=== PATIENT | female | born 1930 | race Caucasian/White ===

== ENCOUNTER → 2016-11-18 | Outpatient (CLI) | payer BC ==
[~2016-11-18] MED LIST: AMOX1TAB44 PO; ASPI81TA28 PO; CHOL20007 PO; CYAN10005 PO; FLUT0.15 NAE; FOSAMAX PO; GLC500 PO; INSDGIPEN SQ; INSHNI SC; LOSA1TAB PO; METF-384 PO; POTA1080 PO; POTA10CA28 PO; PRAV20TA PO; PRD/1 PO; PRD/25 PO; PRED-301 PO; VTMD PO
== END | disposition home or self-care (01) ==
LOC: C.LABBC 07:50
PROVIDERS: ATTEND Internal Medicine Rheumatology
DX: M81.0 Age-related osteoporosis without current pathological fracture (principal); M35.3 Polymyalgia rheumatica; T38.0X1A Poisoning by glucocorticoids and synthetic analogues, accidental (unintentional), initial encounter; E55.9 Vitamin D deficiency, unspecified; X58.XXXA Exposure to other specified factors, initial encounter; E11.9 Type 2 diabetes mellitus without complications

== ENCOUNTER → 2016-11-18 | Outpatient (CLI) | payer BC ==
[2016-11-18 11:26] LABS: RATIO 15.6 mcg/mg (0-30.0)
[2016-11-18 12:23] LABS: ESTIMATED AVERAGE GLUCOSE 217 mg/dl; HA1C FLAG Normal (Normal)
== END | disposition home or self-care (01) ==
LOC: C.LABBC 07:47
PROVIDERS: ATTEND Internal Medicine Endocrinology, Diabetes & Metabolism
DX: E11.9 Type 2 diabetes mellitus without complications (principal)

== ENCOUNTER → 2016-11-29 | Day surgery (SDC) | payer BC ==
[2016-11-22 09:07] VITALS: Ht 174 cm; Wt 49.1 kg
[~2016-11-29] VITALS: Ht 174 cm; Wt 49.1 kg
[~2016-11-29] MED LIST changes: +500ML BSS 0.3ML EPI 1:1000PF IRRIG ONE; +ACETAMINOPHEN 325 MG TAB PO PRN; +AMVISC PLUS 0.8ML SYRINGE INT OCU ONE; +ATROPINE SULFATE 0.1 MG/ML 5ML SYR IV PRN; +AcetaZOLAMIDE 250 MG TAB PO SCH; +BETAXOLOL HCL 0.25% OP SUSP PER DROP CHARGE OPR SCH; +BRIMONIDINE TART 0.2% OP SOLN PER DROP CHARGE ONE; +BSS FLUSH ONE; +ENDOCOAT 0.85ML SYRINGE INT OCU ONE; +EpINEphrine INJ 1MG/ML AMP 1 MG/ML AMP ONE; -FOSAMAX PO; -GLC500 PO; -INSDGIPEN SQ; +LACTATED RINGER'S 1000ML 500 ML IV SCH; +LIDOCAINE 4% OP SOLN DROP CHARGE ONE; +LIDOCAINE 4% OP SOLN DROP CHARGE OPR SCH; +LIDOCAINE HCL 1% MPF 2 ML VIAL ONE; +MIDAZOLAM HCL 1 MG/ML 2ML VIAL ONE; +MIX: 4ML BSS 1ML EPI 1:1000 PF INSTIL ONE; +MOXIFLOXACIN OPH SOLN PER DROP CHARGE ONE; +OCUCOAT 1 ML SOLN IO ONE; -POTA1080 PO; +POVIDONE-IODINE OP SOLN 30 ML BTL ONE; -PRD/25 PO; +PROPARACAINE 0.5% OP SOLN PER DROP CHARGE OPR SCH; +TOBRAMYCIN/DEXAMETHASONE OPH OINT PER APPLN CHARGE ONE; -VTMD PO
[2016-11-29] MEDS: PHENYLEPHRINE HCL 2.5% OP SOLN PER DROP CHARGE OPR SCH ×2 (07:21→07:26)
[2016-11-29] MEDS: TROPICAMIDE 1% OP SOLN PER DROP CHARGE OPR SCH ×2 (07:22→07:27)
[2016-11-29] MEDS: CYCLOPENTOLATE HCL 1% OP SOLN PER DROP CHARGE OPR SCH ×2 (07:23→07:28)
--- NOTE | 2016-11-29 07:23 | History & Physical Bridge - SC ---
H&P Re-Evaluation Bridge Note: I have examined the patient, reviewed the History & Physical and in the interval since the performance of the History & Physical I have noted the following changes of clinical significance: No changes noted
[2016-11-29] MEDS: MOXIFLOXACIN OPH SOLN PER DROP CHARGE OPR SCH ×2 (07:24→07:34)
--- NOTE | 2016-11-29 08:30 | Discharge Instructions-SurgCtr ---
Discharge Instructions Visit Reason for Visit: Cataract Right Eye Discharge Discharge Diagnosis / Problem: lens implant right eye Discharge Goals Goal(s): Improve function Medications Stopped Medications Name(s): Metformin Last dose 11/27/16. Activity Recommendations Activity Limitations: resume your previous activity Lifting Limitations: no more than 10 pounds Exercise/Sports Limitations: gradually increase as tolerated May Resume Sexual Activity: when tolerated Shower/Bathe: tomorrow Driving or Machine Use: resume 1 day after discharge Anesthesia . Post Anesthesia Instructions: If you have had General Anesthesia or IV Sedation: * Do not drive today. * Resume driving when surgeon permits. * Do not make important decisions or sign legal documents today. * Call surgeon for: 1. Temperature elevations greater than 101 degrees F. 2. Uncontrollable pain. 3. Excessive bleeding. 4. Persistent nausea and vomiting. 5. Medication intolerance (nausea, vomiting or rash). * For nausea and vomiting use only clear liquids such as: tea, soda, bouillon until nausea subsides, then gradually increase diet as tolerated. * If you have any concerns or questions, call your surgeon's office. If physician is unavailable and it is an emergency, call 911 or go to the nearest emergency room. . Instructions / Follow-Up Instructions / Follow-Up ACTIVITY RECOMMENDATIONS: * Light activities. * Mild irritation and blurred vision are common for the first few days. * You may walk outside, read, watch television. * Redness around the white part of the eye is common. MEDICATIONS: Resume previous medications unless instructed otherwise by your surgeon. * Take white Diamox (Acetazolamide) tablet at 1 pm today. Start all eye drops at 1 pm today: * Eye drops (today and tomorrow): Prednisone - one drop in operative eye every 3 hours while awake Ofloxacin - one drop in operative eye every 3 hours while awake Ilevro - one drop in operative eye once a day SPECIAL CARE INSTRUCTIONS: * Tape plastic shield over eye to sleep at night. Call your doctor at with any concerns or problems. FOLLOW UP VISIT: Follow-up with Dr Jaime at [place] office as scheduled. Diet Recommendations Home Diet: no limitations Procedures Procedures Performed: cataract extraction with lens implant Pending Studies Studies pending at discharge: no Medical Emergencies . Who to Call and When: Medical Emergencies: If at any time you feel your situation is an emergency, please call 911 immediately. . Non-Emergent Contact Non-Emergency issues call your: Plant Hr Manager Call Non-Emergent contact if: your pain is not controlled [phone] . . "Provider Documentation" section prepared by Arturo Jaime.
--- NOTE | 2016-11-29 08:32 | [facility] Operative Report ---
Operative Report Date of Service Nov 29, 2016. Operative Report 1. PREOPERATIVE DIAGNOSIS: Senile nuclear cataract, right eye. 2. POSTOPERATIVE DIAGNOSIS: Senile nuclear cataract, right eye. 3. PROCEDURE: Phacoemulsification of right cataract with posterior chamber lens implant, type Bausch [employer] Lomb, model MX60, power +25.0 diopters. ANESTHESIA: Local standby. SURGEON: Dr. Jaime. COMPLICATIONS: None. OPERATING TIME: 10 minutes. 4. OPERATION AND FINDINGS: DESCRIPTION OF PROCEDURE: The right pupil was dilated. The anesthetic was administered using a topical technique. The right eye was prepped and draped. A speculum was placed. A clear corneal incision was formed. The chamber was filled with Amvisc Plus and Endocoat. Epinephrine solution was used. A paracentesis was placed. A capsulorrhexis was performed. The nucleus was hydrodissected. A dense lens was removed with phacoemulsification. Time was 9.59 seconds. The aspiration unit was used to remove the cortex. The capsule was filled with Amvisc Plus. The lens implant was folded and placed into the capsule. The incision was hydrated. The Amvisc was aspirated. The wound was secure. The chamber was deep. The pupil was round. TobraDex ointment and Vigamox solution were placed. The speculum was removed. The patient was returned to the Recovery Room in stable condition. I attest to the content of the Intraoperative Record and any orders documented therein. Any exceptions are noted below. The scribe's documentation has been prepared in my presence, under my direction and personally reviewed by me in its entirety. I confirm that the note above accurately reflects all work, treatment, procedures, and medical decision making performed by me. I personally scribed for Arturo Jaime M.D. (JUAN JOSE) on 11/29/16 at 08:32. Electronically submitted by Kristina Alexandra ([facility]).
[2016-11-29 08:38] VITALS: TEMP 36.2
--- NOTE | 2016-11-29 08:48 | Anesthesia Progress Nt - [facility] ---
Anesthesia Post Op Note Date & Time Nov 29, 2016 at 08:48 Vital Signs Pain Intensity: 0 Vital Signs Past 12 Hours Date Time Temp Pulse Resp B/P Pulse Ox O2 Delivery O2 Flow Rate FiO2 11/29/16 08:38 36.2 77 16 124/65 99 Room Air 11/29/16 07:08 36.5 76 16 168/73 99 Room Air Notes Mental Status: alert / awake / arousable, participated in evaluation Pt Amnestic to Procedure: Yes Nausea / Vomiting: adequately controlled Pain: adequately controlled Airway Patency, RR, SpO2: stable & adequate BP & HR: stable & adequate Hydration State: stable & adequate Anesthetic Complications: no major complications apparent
[2016-11-29 08:57] VITALS: BP 144/59; PULSE 64; O2SAT 100
== END | disposition home or self-care (01) ==
LOC: X.SURG 06:57
PROVIDERS: ATTEND Specialist
DX: H25.11 Age-related nuclear cataract, right eye (principal); E11.36 Type 2 diabetes mellitus with diabetic cataract; I10 Essential (primary) hypertension; H40.9 Unspecified glaucoma; Z79.4 Long term (current) use of insulin; M19.90 Unspecified osteoarthritis, unspecified site

== ENCOUNTER → 2017-01-06 | Outpatient (CLI) | payer BC ==
[~2017-01-06] MED LIST changes: -500ML BSS 0.3ML EPI 1:1000PF IRRIG ONE; -ACETAMINOPHEN 325 MG TAB PO PRN; -AMVISC PLUS 0.8ML SYRINGE INT OCU ONE; -ATROPINE SULFATE 0.1 MG/ML 5ML SYR IV PRN; -AcetaZOLAMIDE 250 MG TAB PO SCH; -BETAXOLOL HCL 0.25% OP SUSP PER DROP CHARGE OPR SCH; -BRIMONIDINE TART 0.2% OP SOLN PER DROP CHARGE ONE; -BSS FLUSH ONE; -ENDOCOAT 0.85ML SYRINGE INT OCU ONE; -EpINEphrine INJ 1MG/ML AMP 1 MG/ML AMP ONE; -LACTATED RINGER'S 1000ML 500 ML IV SCH; -LIDOCAINE 4% OP SOLN DROP CHARGE ONE; -LIDOCAINE 4% OP SOLN DROP CHARGE OPR SCH; -LIDOCAINE HCL 1% MPF 2 ML VIAL ONE; -MIDAZOLAM HCL 1 MG/ML 2ML VIAL ONE; -MIX: 4ML BSS 1ML EPI 1:1000 PF INSTIL ONE; -MOXIFLOXACIN OPH SOLN PER DROP CHARGE ONE; -OCUCOAT 1 ML SOLN IO ONE; -POVIDONE-IODINE OP SOLN 30 ML BTL ONE; -PROPARACAINE 0.5% OP SOLN PER DROP CHARGE OPR SCH; -TOBRAMYCIN/DEXAMETHASONE OPH OINT PER APPLN CHARGE ONE
== END | disposition home or self-care (01) ==
LOC: C.LABBC 07:53
PROVIDERS: ATTEND Internal Medicine Rheumatology
DX: M35.3 Polymyalgia rheumatica (principal); T38.0X1A Poisoning by glucocorticoids and synthetic analogues, accidental (unintentional), initial encounter; Z79.52 Long term (current) use of systemic steroids

== ENCOUNTER → 2017-02-24 | Outpatient (CLI) | payer BC ==
[2017-02-24 11:17] LABS: ESTIMATED AVERAGE GLUCOSE 160 mg/dl; HA1C FLAG Normal (Normal); THYROID STIMULATING HORMONE 3.58 uIu/ml (0.300-4.500)
== END | disposition home or self-care (01) ==
LOC: C.LABBC 07:41
PROVIDERS: ATTEND Physician Assistant
DX: E11.9 Type 2 diabetes mellitus without complications (principal); M35.3 Polymyalgia rheumatica; T38.0X1A Poisoning by glucocorticoids and synthetic analogues, accidental (unintentional), initial encounter; Z79.52 Long term (current) use of systemic steroids

== ENCOUNTER → 2017-02-24 | Outpatient (CLI) | payer BC | END | disposition home or self-care (01) | LOC: C.LABBC 07:43 | PROVIDERS: ATTEND Internal Medicine Rheumatology | DX: M35.3 Polymyalgia rheumatica (principal); T38.0X1A Poisoning by glucocorticoids and synthetic analogues, accidental (unintentional), initial encounter; Z79.52 Long term (current) use of systemic steroids ==

== ENCOUNTER → 2017-05-10 | Outpatient (CLI) | payer BC ==
--- NOTE | 2017-05-10 14:31 | DIAGNOSTIC IMAGING REPORT ---
(CHEST) THORAX WITHOUT CLINICAL HISTORY: R91.8 Pulmonary nodules COMPARISON STUDY: 05/02/2016 CT DOSE: 178.28 mGycm TECHNIQUE: CT of the thorax was performed from the thoracic inlet to the lung bases. Images are reviewed in the axial, sagittal, and coronal planes. IV contrast was not administered for this examination. A dose lowering technique was utilized adhering to the principles of ALARA. FINDINGS: Thyroid: There is a multinodular thyroid gland including an 18 mm left lobe thyroid nodule. Thoracic aorta: The thoracic aorta is normal in course and caliber, noting standard 3 vessel arch anatomy. Heart: The heart is mildly enlarged. Lungs and pleural spaces: No pleural effusions are visualized. Evaluation the parenchyma is limited due to respiratory motion artifact. There is no focal pulmonary consolidation. There are stable solid subcentimeter pulmonary nodules, the largest of which measures 3 mm. No further follow-up is deemed indicated. Mediastinum: There is no mediastinal lymphadenopathy. Karen: There is no evidence of pathologic hilar adenopathy given the limitations of a noncontrast study Axilla: Clear. Upper abdomen: Bilateral nephrolithiasis Skeletal structures: There are no lytic or blastic osseous lesions. IMPRESSION: 1. Stable bilateral subcentimeter pulmonary nodules, the largest of which measures 3 mm. No further follow-up is deemed indicated 2. No evidence of pathologic adenopathy 3. Multinodular thyroid gland including an 18 mm left lobe nodule 4. Bilateral nephrolithiasis Electronically signed by: Khalif Pagan M.D. 05/10/2017 2:30 PM Dictated Date/Time: 05/10/2017 2:25 PM
== END | disposition home or self-care (01) ==
LOC: C.CTS 13:54
PROVIDERS: ATTEND Physician Assistant Medical
DX: R91.8 Other nonspecific abnormal finding of lung field (principal); E04.2 Nontoxic multinodular goiter

== ENCOUNTER → 2017-05-12 | Outpatient (CLI) | payer BC | END | disposition home or self-care (01) | LOC: C.LABBC 07:45 | PROVIDERS: ATTEND Internal Medicine Rheumatology | DX: M35.3 Polymyalgia rheumatica (principal); T38.0X1A Poisoning by glucocorticoids and synthetic analogues, accidental (unintentional), initial encounter; Z79.52 Long term (current) use of systemic steroids ==

== ENCOUNTER → 2017-06-01 | Outpatient (CLI) | payer BC ==
--- NOTE | 2017-06-01 15:32 | DIAGNOSTIC IMAGING REPORT ---
SOFT TISS HEAD/NECK-THYROID CLINICAL HISTORY: 86 years-old Female with Thyroid nodule. COMPARISON: CT chest 05/10/2017 TECHNIQUE: Multiple real time sonographic images of the thyroid were obtained accessing callaway scale appearance and color doppler flow. FINDINGS: MEASUREMENTS: Right lobe: 3.1 x 1.6 x 1.5 cm Left lobe: 4.2 x 1.6 x 2.3 cm Isthmus: 0.3 cm PARENCHYMA: The thyroid parenchymal echotexture is mildly heterogeneous. NODULES: Multiple nodules are seen throughout the left thyroid, largest is at the lower pole, 2.6 x 1.4 x 1.9 cm which is partially cystic and solid with ill-defined margins. Upper pole nodules also seen in the left measuring up to 1.4 x 0.7 x 1.1 cm which is mostly solid and isoechoic with minimal internal cystic spaces. Isoechoic circumscribed solid nodule of the right thyroid is seen, 1.1 x 0.6 x 0.8 cm. No suspicious right sided thyroid nodules are identified. IMPRESSION: Multinodular thyroid as above with largest nodule within the lower pole left thyroid, 2.6 cm which is partially cystic and solid with ill-defined margins. Further evaluation with FNA may be considered. The above report was generated using voice recognition software. It may contain grammatical, syntax or spelling errors. Electronically signed by: Umer Milner M.D. 06/01/2017 3:30 PM Dictated Date/Time: 06/01/2017 3:25 PM
== END | disposition home or self-care (01) ==
LOC: C.ULTR 13:49
PROVIDERS: ATTEND Physician Assistant
DX: E04.2 Nontoxic multinodular goiter (principal)

== ENCOUNTER → 2017-06-05 | Outpatient (CLI) | payer BC ==
--- NOTE | 2017-06-05 12:38 | MAMMOGRAPHY REPORT ---
BILATERAL DIGITAL SCREENING MAMMOGRAM WITH CAD: 06/05/2017 CLINICAL HISTORY: Routine screening. Patient has no complaints. TECHNIQUE: Bilateral CC and MLO views were obtained. Current study was also evaluated with a Comput er Aided Detection (CAD) system. COMPARISON: Comparison is made to exams dated: 06/03/2015 mammogram, 04/15/2014 mammogram, 04/14/2013 ma mmogram, 04/01/2012 mammogram, 11/22/2010 mammogram, and 08/16/2005 mammogram - [facility] nter. BREAST COMPOSITION: There are scattered areas of fibroglandular density in both breasts. FINDINGS: There are rodlike secretory calcifications in both breasts. No suspicious mass, architectu ral distortion or cluster of suspicious microcalcifications is seen. IMPRESSION: ACR BI-RADS CATEGORY 1: NEGATIVE There is no mammographic evidence of malignancy. A 1 year screening mammogram is recommended. The pa tient will receive written notification of the results. Approximately 10% of breast cancers are not detected with mammography. A negative mammographic report should not delay biopsy if a clinically suggestive mass is present. Danna Huitron M.D. ay/:06/05/2017 10:33:11 Furniture Sales Associate: Maria Ines ALEXIS(Robert)(Shabana)(BD), [facility] letter sent: Normal 1/2 BI-RADS Code: ACR BI-RADS Category 1: Negative
== END | disposition home or self-care (01) ==
LOC: C.MAMM 08:55
PROVIDERS: ATTEND Physician Assistant Medical
DX: Z12.31 Encounter for screening mammogram for malignant neoplasm of breast (principal); E04.1 Nontoxic single thyroid nodule

== ENCOUNTER → 2017-06-18 | Outpatient (CLI) | payer BC ==
[2017-06-18 10:57] LABS: BLOOD UREA NITROGEN 20 mg/dl (7-18); BUN/CREATININE RATIO 20.7 (10-20); CARBON DIOXIDE 28 mmol/L (21-32); CHLORIDE 106 mmol/L (98-107); CREATININE 0.96 mg/dl (0.60-1.20); GLUCOSE 96 mg/dl (70-99); POTASSIUM 4.4 mmol/L (3.5-5.1); SODIUM 141 mmol/L (136-145)
[2017-06-18 11:25] LABS: ESTIMATED AVERAGE GLUCOSE 166 mg/dl; HA1C FLAG Normal (Normal)
== END | disposition home or self-care (01) ==
LOC: C.LABBC 07:28
PROVIDERS: ATTEND Internal Medicine Rheumatology
DX: M35.8 Other specified systemic involvement of connective tissue (principal); T38.0X1A Poisoning by glucocorticoids and synthetic analogues, accidental (unintentional), initial encounter; E11.9 Type 2 diabetes mellitus without complications

== ENCOUNTER → 2017-09-04 | Outpatient (CLI) | payer BC ==
[2017-09-04 13:57] LABS: ESTIMATED AVERAGE GLUCOSE 163 mg/dl; HA1C FLAG Normal (Normal)
[2017-09-04 14:02] LABS: ALT/SGPT 19 U/L (12-78); AST/SGOT 19 U/L (15-37); BLOOD UREA NITROGEN 24 mg/dl (7-18); BUN/CREATININE RATIO 24.4 (10-20); CALCIUM 9.8 mg/dl (8.5-10.1); CARBON DIOXIDE 28 mmol/L (21-32); CHLORIDE 103 mmol/L (98-107); CHOLESTEROL 145 mg/dl (0-200); CREATININE 0.97 mg/dl (0.60-1.20); GLUCOSE 125 mg/dl (70-99); POTASSIUM 4.4 mmol/L (3.5-5.1); SODIUM 136 mmol/L (136-145)
[2017-09-04 14:04] LABS: RATIO 11.9 mcg/mg (0-30.0)
[2017-09-04 14:12] LABS: ALB/GLOB RATIO 1.1 (0.9-2); ALKALINE PHOSPHATASE 69 U/L (45-117); CHOLESTEROL/HDL RATIO 2.1; HDL CHOLESTEROL 68 mg/dl; LDL CHOLESTEROL CALCULATED 39 mg/dl; TRIGLYCERIDES 192 mg/dl (0-150); VERY LOW DENSITY LIPOPROT CALC 38 mg/dl
== END | disposition home or self-care (01) ==
LOC: C.LABBC 11:28
PROVIDERS: ATTEND Internal Medicine Rheumatology
DX: E04.1 Nontoxic single thyroid nodule (principal); M15.9 Polyosteoarthritis, unspecified; M81.8 Other osteoporosis without current pathological fracture; Z51.81 Encounter for therapeutic drug level monitoring; Z79.52 Long term (current) use of systemic steroids

== ENCOUNTER → 2017-10-24 | Outpatient (CLI) | payer BC | END | disposition home or self-care (01) | LOC: C.LAB1850 07:37 | PROVIDERS: ATTEND Internal Medicine Rheumatology | DX: M35.3 Polymyalgia rheumatica (principal); Z79.52 Long term (current) use of systemic steroids ==

== ENCOUNTER → 2017-12-05 | Outpatient (CLI) | payer BC ==
[2017-12-05 16:54] LABS: BLOOD UREA NITROGEN 29 mg/dl (7-18); CALCIUM 9.2 mg/dl (8.5-10.1); CARBON DIOXIDE 29 mmol/L (21-32); CREATININE 0.92 mg/dl (0.60-1.20); GLUCOSE 106 mg/dl (70-99); POTASSIUM 4.1 mmol/L (3.5-5.1); SODIUM 139 mmol/L (136-145)
[2017-12-06 08:34] LABS: HEMOGLOBIN A1C 7.1 % (4.5-5.6)
== END | disposition home or self-care (01) ==
LOC: C.LABBC 13:20
PROVIDERS: ATTEND Physician Assistant
DX: E55.9 Vitamin D deficiency, unspecified (principal); E78.5 Hyperlipidemia, unspecified; E11.9 Type 2 diabetes mellitus without complications; I10 Essential (primary) hypertension; M35.3 Polymyalgia rheumatica

== ENCOUNTER → 2018-02-11 | Outpatient (CLI) | payer BC | END | disposition home or self-care (01) | LOC: C.MAMM 09:58 | PROVIDERS: ATTEND Internal Medicine Rheumatology | DX: M81.0 Age-related osteoporosis without current pathological fracture (principal) ==

== ENCOUNTER → 2018-05-20 | Outpatient (CLI) | payer BC | END | disposition home or self-care (01) | LOC: C.LABBC 07:34 | PROVIDERS: ATTEND Internal Medicine Rheumatology | DX: M81.8 Other osteoporosis without current pathological fracture (principal); T38.0X5A Adverse effect of glucocorticoids and synthetic analogues, initial encounter; Z79.52 Long term (current) use of systemic steroids; M35.3 Polymyalgia rheumatica ==

== ENCOUNTER 2020-11-05 18:52 | Observation (INO) ==
--- NOTE | 2020-11-05 21:08 | XRay Report ---
XR chest 1V portable HISTORY: 89 years-old Female syncope acute syncope COMPARISON: Chest radiographs 04/15/2020 TECHNIQUE: Portable AP view of the chest FINDINGS: Cardiomediastinal and hilar silhouettes are within normal limits. Mild linear subsegmental scarring/a telectasis. No pneumothorax, pleural effusion, airspace consolidation or overt pulmonary edema. Bones of the chest appear grossly intact. IMPRESSION: No acute process. ACT 112: Negative or not required by law. The above report was generated using voice recognition software. It may contain grammatical, syntax o r spelling errors. Electronically signed by: Umer Milner M.D. 11/05/2020 9:07 PM
--- NOTE | 2020-11-05 21:26 | Emergency Department Note ---
History of Present Illness General Chief complaint: Syncope Stated complaint: PASS OUT 2 TIME'S TODAY, DR SCOTT OVER Time Seen by Provider: 11/05/20 20:34 Source: patient Mode of arrival: ambulatory Limitations: no limitations History of Present Illness Provider complaint: Syncope x2 This is a 89-year-old female who presents to the ED with a chief complaint of syncope twice today. The patient was initially talking with her daughter around noon today when the daughter suddenly could not hear the patient while she was talking and then the talking stopped. The patient had reportedly dropped her cell phone. The daughter called back and the patient answered the phone about a minute or 2 later and states that she thinks that she may have passed out. She was on the bed at the time. She did not get hurt. The family went over and checked her blood sugar and it was normal. They fed her. Earlier in the day jessica desai had seen a chiropractor for some chronic arm issues and had a massage of her right arm and shoulder region. She did not have any manipulation. This afternoon around 130 or 2:00, the patient was sitting with her family and talking. She suddenly stated " it is happening again" and passed out while seated at a chair in the kitchen. The patient was near her daughter and the daughter was able to catch her before she fell off of the chair. The symptoms lasted for less than 30 seconds. The patient then came to and then went to sit on the couch. They contacted the PCPs office and the did not get back to her right away. When they did get back to her, they told her to come into the ER. She has not had any additional symptoms today. She currently feels fine. She has not been recently ill. Home Medications Medication Instructions Recorded Confirmed Type aspirin 81 mg tablet,delayed 81 mg PO DAILY 04/15/19 11/04/20 History release azelastine 137 mcg (0.1 %) nasal 2 sprays INTNAS DAILY #30 ml 04/15/19 11/04/20 Rx spray aerosol cholecalciferol (vitamin D3) 25 1,000 units PO DAILY #30 cap 04/15/19 11/04/20 Rx mcg (1,000 unit) capsule mecobalamin (vitamin B12) 1,000 1,000 mcg SL DAILY #30 tab 04/15/19 11/04/20 Rx mcg disintegrating tablet,sublingual potassium citrate 10 mEq (1,080 10 meq PO DAILY #90 tab 10/06/19 11/04/20 Rx mg) tablet,extended release pravastatin 20 mg tablet 20 mg PO DAILY #90 tab 02/24/20 11/04/20 Rx meclizine 12.5 mg tablet 12.5 mg PO TID PRN #30 tab 06/03/20 11/04/20 Rx insulin NPH isoph U-100 human 100 21 unit SUBCUT DAILY 90 Days #18.9 06/09/20 11/04/20 Rx unit/mL (3 mL) subcutaneous pen ml BD Christine 2nd Gen Pen Needle 32 #100 ea NS 06/14/20 11/04/20 Rx gauge x 5/32" OneTouch Verio test strips #300 ea NS 08/02/20 11/04/20 Rx loratadine 10 mg capsule 10 mg PO DAILY #30 cap 09/16/20 11/04/20 Rx prednisone 1 mg tablet 1 mg PO DAILY #90 tab 09/29/20 11/04/20 Rx losartan 25 mg tablet 12.5 mg PO DAILY tab 11/04/20 11/04/20 History Allergies Allergy/AdvReac Type Severity Reaction Status Date / Time pollen extracts Allergy Unknown SINUS Verified 11/04/20 14:16 CONGESTION levofloxacin [From Levaquin] Allergy Verified 11/04/20 14:16 mometasone furoate Allergy Verified 11/04/20 14:16 [From Asmanex Twisthaler] montelukast [From Singulair] Allergy Verified 11/04/20 14:16 Dust Allergy Unknown SINUS Uncoded 11/04/20 14:16 CONGESTION Past Med/Surg History Medical History Generalized osteoarthritis of multiple sites Nephrolithiasis Pneumonia Sensorineural hearing loss (SNHL) of both ears Thyroid nodule Surgical History H/O cystoscopy History of cataract surgery History of lithotripsy History of lumpectomy Family History Father Allergic rhinitis Social History Smoking Status: Never smoker Second Hand Exposure: No; Hx Alcohol Use: No Hx Substance Use: No Preferred Language: Belarusian Communication Ability: Effective Visual Impairment: Diminished Hearing Ability: Use of Hearing Aid Beliefs That Will Affect Care: None marital status: / Current Living Situation: Family Current Living Situation Comment: son lives her current occupational status: retired Feels Safe at Home: Yes Childhood Exposure to Second-Hand Smoke: No Seatbelt Use: always Sunscreen Use: No Assistive Devices: Hearing Aid - Bilateral Physical Exam Vital Signs Vital Signs - 24 hr 11/05/20 19:02 11/05/20 20:35 11/05/20 20:50 Temperature 36.7 C Temperature Source Oral Pulse Rate 80 74 Pulse Rate from SpO2 Sensor 66 Respiratory Rate 18 15 16 Respiratory Effort / Characteristics Non-Labored Spontaneous Respiratory Depth Normal Normal Respiratory Pattern Regular Blood Pressure 175/76 H 196/68 H Blood Pressure Mean 109 110 Pulse Oximetry 95 96 97 Oxygen Delivery Method Room Air Room Air Room Air Sepsis Recent Fever Within 48 Hours No Sepsis New/Unexplained Change in Mental Status No Sepsis Action Taken by Nursing No Action Required 11/05/20 21:40 11/05/20 22:00 Temperature Temperature Source Pulse Rate 77 Pulse Rate from SpO2 Sensor 75 Respiratory Rate 21 Respiratory Effort / Characteristics Non-Labored Spontaneous Respiratory Depth Normal Respiratory Pattern Regular Blood Pressure 179/97 H Blood Pressure Mean 124 Pulse Oximetry 96 Oxygen Delivery Method Room Air Sepsis Recent Fever Within 48 Hours Sepsis New/Unexplained Change in Mental Status Sepsis Action Taken by Nursing Medical Decision Making Laboratory Data Result diagrams: 11/05/20 21:20 11/05/20 21:20 Lab Results 11/05/20 11/05/20 11/05/20 Range/Units 21:20 21:20 21:20 WBC 7.21 (4.8-10.8) K/uL RBC 4.13 L (4.2-5.4) M/uL Hgb 11.9 L (12.0-16.0) g/dL Hct 35.2 L (37-47) % MCV 85.2 (80-100) fL MCH 28.8 (25-34) pg MCHC 33.8 (32-36) g/dL RDW Std Deviation 40.3 (36.4-46.3) fL RDW Coeff of Hilary 13.0 (11.5-14.5) % Plt Count 189 (130-400) K/uL MPV 9.9 (7.4-10.4) fL Immature Gran % (Auto) 0.1 % Neut % (Auto) 70.3 % Lymph % (Auto) 21.8 % [place] % (Auto) 6.0 % Eos % (Auto) 1.4 % Baso % (Auto) 0.4 % Neut # (Auto) 5.07 (1.4-6.5) K/uL Lymph # (Auto) 1.57 (1.2-3.4) K/uL [place] # (Auto) 0.43 (0.11-0.59) K/uL Eos # (Auto) 0.10 (0-0.5) K/uL Baso # (Auto) 0.03 (0-0.2) K/uL Immature Gran # (Auto) 0.01 (0.00-0.02) K/uL PT 10.3 (9.0-12.0) Seconds INR 1.0 (0.9-1.1) APTT 25.2 (21.0-31.0) Seconds PTT Ratio 1.0 Sodium 141 (136-145) mmol/L Potassium 4.3 (3.5-5.1) mmol/L Chloride 107 (98-107) mmol/L Carbon Dioxide 28 (21-32) mmol/L Anion Gap 6.0 (3-11) BUN 22 H (7-18) mg/dl Creatinine 0.86 (0.6-1.2) mg/dl Est Cr Clr Drug Dosing Not Reportable Est GFR ( Amer) 69.9 Est GFR (Non-Af Amer) 60.3 BUN/Creatinine Ratio 25.4 H (10-20) Glucose 172 H (70-99) mg/dl Calcium 10.1 (8.5-10.1) mg/dl Magnesium 2.0 (1.8-2.4) mg/dl Total Bilirubin 0.3 (0.2-1) mg/dl AST 18 (15-37) U/L ALT 24 (12-78) U/L Alkaline Phosphatase 60 (45-117) U/L Total Creatine Kinase 68 (26-192) U/L Troponin I < 0.015 (0-0.045) ng/ml Total Protein 7.4 (6.4-8.2) gm/dl Albumin 3.8 (3.4-5.0) gm/dl Globulin 3.6 (2.5-4.0) gm/dl Albumin/Globulin Ratio 1.1 (0.9-2) TSH 1.940 (0.300-4.500) uIu/ml COVID-19 Eval Order 11/05/20 Range/Units 21:44 WBC (4.8-10.8) K/uL RBC (4.2-5.4) M/uL Hgb (12.0-16.0) g/dL Hct (37-47) % MCV (80-100) fL MCH (25-34) pg MCHC (32-36) g/dL RDW Std Deviation (36.4-46.3) fL RDW Coeff of Hilary (11.5-14.5) % Plt Count (130-400) K/uL MPV (7.4-10.4) fL Immature Gran % (Auto) % Neut % (Auto) % Lymph % (Auto) % [place] % (Auto) % Eos % (Auto) % Baso % (Auto) % Neut # (Auto) (1.4-6.5) K/uL Lymph # (Auto) (1.2-3.4) K/uL [place] # (Auto) (0.11-0.59) K/uL Eos # (Auto) (0-0.5) K/uL Baso # (Auto) (0-0.2) K/uL Immature Gran # (Auto) (0.00-0.02) K/uL PT (9.0-12.0) Seconds INR (0.9-1.1) APTT (21.0-31.0) Seconds PTT Ratio Sodium (136-145) mmol/L Potassium (3.5-5.1) mmol/L Chloride (98-107) mmol/L Carbon Dioxide (21-32) mmol/L Anion Gap (3-11) BUN (7-18) mg/dl Creatinine (0.6-1.2) mg/dl Est Cr Clr Drug Dosing Est GFR ( Amer) Est GFR (Non-Af Amer) BUN/Creatinine Ratio (10-20) Glucose (70-99) mg/dl Calcium (8.5-10.1) mg/dl Magnesium (1.8-2.4) mg/dl Total Bilirubin (0.2-1) mg/dl AST (15-37) U/L ALT (12-78) U/L Alkaline Phosphatase (45-117) U/L Total Creatine Kinase (26-192) U/L Troponin I (0-0.045) ng/ml Total Protein (6.4-8.2) gm/dl Albumin (3.4-5.0) gm/dl Globulin (2.5-4.0) gm/dl Albumin/Globulin Ratio (0.9-2) TSH (0.300-4.500) uIu/ml COVID-19 Eval Order Covid19 [facility] Data My Impression: XR chest 1V portable HISTORY: 89 years-old Female syncope acute syncope COMPARISON: Chest radiographs 04/15/2020 TECHNIQUE: Portable AP view of the chest FINDINGS: Cardiomediastinal and hilar silhouettes are within normal limits. Mild linear subsegmental scarring/atelectasis. No pneumothorax, pleural effusion, airspace consolidation or overt pulmonary edema. Bones of the chest appear grossly intact. IMPRESSION: No acute process. ECG Data Attestation: I personally reviewed and interpreted this ECG as follows: Indication: + syncope Rate (beats per minute): 80 Rhythm: + sinus rhythm ECG Intervals/blocks: + Right Bundle branch block ECG ST segments: + T-wave inversions (Lateral) ECG Findings: + PVCs MDM Narrative This is an 89-year-old female who presents to the ED with 2 episodes of syncope today. One was witnessed by the daughter while the patient was on the phone with the daughter. The other was witnessed in person by the daughter. There was no seizure activity. The patient was unresponsive for 1 or 2 minutes the first episode and for less than 30 seconds on the second episode. The patient did not have any presyncopal symptoms on the first episode. On the second episode, the patient mentioned that it is happening again and then went unresp onsive, per the daughter who witnessed the second event. She was unresponsive for less than 30 seconds and then came around. She was referred here by her PCP. Her twelve-lead EKG shows a sinus rhythm at a rate of 80 with occasional PVC with a right bundle branch block and some T wave inversions in the lateral leads. No old EKG is available for comparison. Chest x-ray did not show acute process. Her CBC was unremarkable. Coagulation studies are normal. Chemistry panel was unremarkable. Troponin is negative. TSH was normal. The patient symptoms sound arrhythmogenic in nature and therefore I feel the patient requires observation overnight for monitoring and cardiology evaluation. She is currently asymptomatic. Cardiac monitoring: An order was placed for continuous cardiac monitoring. The monitor shows a rate of 75 with sinus rhythm and PVCs. Impression & Plan Syncope Discharge Plan Visit Data Chief Complaint: Syncope Stated Complaint: PASS OUT 2 TIME'S TODAY, DR REF OVER ED Provider: Jim Nino Discharge Problem: Syncope Patient Disposition: Being Evaluated by Hospitalist Forms Stand Alone Forms: My [facility] Prescriptions Prescriptions: No Action aspirin [Adult Low Dose Aspirin] 81 mg tablet,delayed release (DR/EC) 81 mg PO DAILY RF: 0 azelastine 137 mcg (0.1 %) aerosol,spray 2 sprays INTNAS DAILY Qty: 30 RF: 11 mecobalamin (vitamin B12) 1,000 mcg tablet,disintegrating 1,000 mcg SL DAILY Qty: 30 RF: 0 cholecalciferol (vitamin D3) 1,000 unit capsule 1,000 units PO DAILY Qty: 30 RF: 11 pravastatin 20 mg tablet 20 mg PO DAILY Qty: 90 RF: 3 Humulin N NPH Insulin KwikPen 100 unit/mL (3 mL) insulin pen 21 unit subcut DAILY 90 Days Qty: 18.9 RF: 3 (DME) pen needle, diabetic [BD Christine 2nd Gen Pen Needle] 32 gauge x 5/32" needle See Dose Instructions .ROUTE .MEDSUPPLY Qty: 100 RF: 3 (DME) OneTouch Verio test strips Strip See Dose Instructions .ROUTE .MEDSUPPLY Qty: 300 RF: 3 loratadine 10 mg capsule 10 mg PO DAILY Qty: 30 RF: 5 prednisone 1 mg tablet 1 mg PO DAILY Qty: 90 RF: 3 meclizine 12.5 mg tablet 12.5 mg PO TID PRN (Reason: dizziness) Qty: 30 RF: 0 losartan 25 mg tablet 12.5 mg PO DAILY RF: 0 potassium citrate 10 mEq (1,080 mg) tablet extended release 10 meq PO DAILY Qty: 90 RF: 3 Referrals Referrals: Baldomero Joseph MD [Primary Care Provider] - Discharge Problem: Syncope Qualifiers: Syncope type: unspecified Qualified Code(s): R55 - Syncope and collapse
[2020-11-05 21:33] LABS: Basophils # (auto) 0.03 K/uL (0-0.2); Basophils % (auto) 0.4 %; Eosinophils % (auto) 1.4 %; Hematocrit (blood only) 35.2 % (37-47); Hemoglobin 11.9 g/dL (12.0-16.0); Immature Granulocytes # (auto) 0.01 K/uL (0.00-0.02); Immature Granulocytes % (auto) 0.1 %; Lymphocytes # (auto) 1.57 K/uL (1.2-3.4); Lymphocytes % (auto) 21.8 %; Mean Corpuscular Hemoglobin 28.8 pg (25-34); Mean Corpuscular Hgb Conc 33.8 g/dL (32-36); Mean Corpuscular Volume 85.2 fL (80-100); Mean Platelet Volume 9.9 fL (7.4-10.4); Monocytes # (auto) 0.43 K/uL (0.11-0.59); Neutrophils # (auto) 5.07 K/uL (1.4-6.5); Neutrophils % (auto) 70.3 %; Platelet Count 189 K/uL (130-400); RDW Standard Deviation 40.3 fL (36.4-46.3); Red Blood Count 4.13 M/uL (4.2-5.4); White Blood Count 7.21 K/uL (4.8-10.8)
[2020-11-05 21:51] LABS: Alanine Aminotransferase 24 U/L (12-78); Albumin Level 3.8 gm/dl (3.4-5.0); Aspartate Aminotransferase 18 U/L (15-37); BUN Creatinine Ratio 25.4 (10-20); Blood Urea Nitrogen 22 mg/dl (7-18); Calcium 10.1 mg/dl (8.5-10.1); Carbon Dioxide 28 mmol/L (21-32); Chloride 107 mmol/L (98-107); Est GFR (African American) 69.9; Est GFR (Non-African American) 60.3; Glucose 172 mg/dl (70-99); Potassium 4.3 mmol/L (3.5-5.1); Sodium 141 mmol/L (136-145)
[2020-11-05 21:58] LABS: Partial Thromboplastin Time 25.2 Seconds (21.0-31.0); Prothrombin Time 10.3 Seconds (9.0-12.0)
[2020-11-05 22:02] LABS: Albumin Globulin Ratio 1.1 (0.9-2); Alkaline Phosphatase 60 U/L (45-117); Bilirubin,Total 0.3 mg/dl (0.2-1); Creatine Kinase 68 U/L (26-192); Globulin 3.6 gm/dl (2.5-4.0); Total Protein 7.4 gm/dl (6.4-8.2); Troponin I < 0.015 ng/ml (0-0.045)
[2020-11-05 23:19] LABS: Appearance Urine Cloudy (Clear); Bacteria Urine Automated Negative (Negative); Bilirubin Urine Negative (Negative); Blood Urine Negative (Negative); Color Urine Yellow; Epithelial Cell Urine Auto 20-30 /lpf (0-5); Glucose Urine UA Negative (Negative); Ketones Urine Negative (Negative); Leukocyte Esterase Urine 2+ (Negative); Nitrite Urine Negative (Negative); Protein Urine Negative (Negative); RBC Urine Automated 0-4 /hpf (0-4); Specific Gravity Urine 1.015 (1.000-1.030); Urobilinogen Urine Negative (Negative)
--- NOTE | 2020-11-05 23:37 | History & Physical Report ---
Date of Service November 05, 2020 Assessment & Plan (1) Syncope: Syncopal episodes x2- The patient will be admitted to telemetry for serial cardiac enzymes, serial EKG's, cardiac rhythm monitoring and a 2-D echocardiogram with Dopplers. Ordered CT scan of head without contrast, to assess for post syncopal injury, which showed no acute event. Patient did have carotid Dopplers performed on 09/07/2020 that were negative Patient symptoms are concerning for possible arrhythmia. Present on Admission?: Yes (2) Dyslipidemia: Continue pravastatin 20 mg daily Present on Admission?: Yes (3) Polymyalgia rheumatica: On prednisone 1 mg p.o. daily, will hold on stress dose steroids Present on Admission?: Yes (4) Hypertension: Continue aspirin and losartan Present on Admission?: Yes (5) Diabetes mellitus with insulin therapy: Continue NPH [address] on Accu-Cheks before meals and at bedtime with NovoLog coverage for scale Relatively quick recovery after these 2 syncopal episodes, argues against a hypoglycemic event, and family tested her glucose shortly after the second event and it was in the 180s. Present on Admission?: Yes History of Present Illness Chief Complaint: The patient presents to the emergency department after 2 syncopal episodes, with the first being at 11:30 and the second being at 1:30. Primary Care Provider: Baldomero Joseph MD The patient is an 89-year-old female with a past medical history including nephrolithiasis, SNHL of both ears, lightheadedness, dyslipidemia, proliferative diabetic retinopathy in both eyes, polymyalgia rheumatica, hypertension, GERD without esophagitis, diabetes mellitus with insulin therapy, corticosteroid induced osteoporosis, chronic sinusitis, anemia and allergic rhinitis. Her daughter is in attendance in the emergency department this evening, and reports that while she was on the phone with her mother, she lost connection, and thought maybe it was due to a loss of connection on cell phone. However, the patient reports that when she came to she saw that her cell phone was on the floor, and wondered how he got there, and then called her daughter back. The second episode was witnessed by her daughter, and was preceded by the patient telling her daughter "he it goes again,and then passed out. Her daughter then called EMS, and brought the patient to the emergency department for assessment. Patient denies loss of bowel or bladder control, and did not have any issues with confusion after each episode. Prior to today, she did not have any symptoms like this in the past. She denies any recent travels or sick exposures. Her COVID-19 test was negative in the ED this evening. Allergies Allergy/AdvReac Type Severity Reaction Status Date / Time levofloxacin [From Levaquin] Allergy Unknown Joint Pain Verified 11/05/20 22:48 pollen extracts Allergy Unknown Sinus Verified 11/05/20 22:48 Congestion mometasone furoate AdvReac Unknown Could not Verified 11/05/20 22:48 [From Asmanex Twisthaler] sleep montelukast [From Singulair] AdvReac Unknown Could not Verified 11/05/20 22:48 sleep Dust Allergy Unknown Sinus Uncoded 11/05/20 22:48 Congestion Home Medications Medication Instructions Recorded Confirmed Type aspirin 81 mg tablet,delayed 81 mg PO DAILY 04/15/19 11/05/20 History release cholecalciferol (vitamin D3) 25 1,000 units PO DAILY #30 cap 04/15/19 11/05/20 Rx mcg (1,000 unit) capsule mecobalamin (vitamin B12) 1,000 1,000 mcg SL DAILY #30 tab 04/15/19 11/05/20 Rx mcg disintegrating tablet,sublingual potassium citrate 10 mEq (1,080 10 meq PO DAILY #90 tab 10/06/19 11/05/20 Rx mg) tablet,extended release pravastatin 20 mg tablet 20 mg PO DAILY #90 tab 02/24/20 11/05/20 Rx insulin NPH isoph U-100 human 100 21 unit SUBCUT DAILY 90 Days #18.9 06/09/20 11/05/20 Rx unit/mL (3 mL) subcutaneous pen ml loratadine 10 mg capsule 10 mg PO DAILY #30 cap 09/16/20 11/05/20 Rx losartan 25 mg tablet 12.5 mg PO DAILY tab 11/04/20 11/05/20 History azelastine 2 sprays INTNAS DAILY PRN 11/05/20 11/05/20 History meclizine 12.5 mg PO TID PRN 11/05/20 11/05/20 History prednisone 1 mg PO QAM 11/05/20 11/05/20 History Past Med/Surg History Medical History Generalized osteoarthritis of multiple sites Nephrolithiasis Pneumonia Sensorineural hearing loss (SNHL) of both ears Thyroid nodule Surgical History H/O cystoscopy History of cataract surgery History of lithotripsy History of lumpectomy Family History Father Allergic rhinitis Social History Smoking Status: Never smoker Second Hand Exposure: No; Hx Alcohol Use: No Hx Substance Use: No Preferred Language: Mauritian Communication Ability: Effective Visual Impairment: Diminished Hearing Ability: Use of Hearing Aid Sales Exhibitor Required: No Beliefs That Will Affect Care: None marital status: / Current Living Situation: Family Current Living Situation Comment: son lives her current occupational status: retired Other Information That Helps Us Care for You: No Feels Safe at Home: Yes Safety Concerns: Feels Safe At This Time Childhood Exposure to Second-Hand Smoke: No Seatbelt Use: always Sunscreen Use: No Assistive Devices: Hearing Aid - Bilateral Review of Systems Review of Systems: The patient denies chest pain, palpitations, shortness of breath, dyspnea on exertion, cough, lower extremity swelling, sore throat, fevers, chills, sweats, weight change, fatigue, nausea, vomiting, diarrhea , constipation, abdominal pain, pelvic pain, blood in urine or stool, dysuria, urinary frequency or urgency, lightheadedness, dizziness, headache, rash, abnormal bruising or bleeding, imbalance, focal or generalized weakness, numbness or tingling in arms or legs, generalized arthralgias or myalgias, back or neck pain, or night sweats. The review of systems is otherwise negative other than for that already noted above, and at least 10 systems have been reviewed. Physical Exam Physical Exam: The patient is awake, alert and oriented 3, well developed and well nourished, normocephalic and atraumatic, lying in bed and in no acute distress. HEENT--PERRL, EOMI, mucous membranes and oropharynx dry. Neck--supple. No JVD. No bruits. Thyroid normal, trachea midline, no adenopathy. Heart--normal S1 and S2. No murmurs, rubs or gallops. Lungs--clear bilaterally, no respiratory distress, no accessory muscle use. Abdomen--normal bowel sounds and soft. Nontender. Nondistended, no hernias or masses, no organomegaly. Extremities--no cyanosis or clubbing. No edema. Dermatologic--normal skin turgor, normal color, no abnormal lymph nodes, no rash. Neurologic--cranial nerves II through XII grossly intact. Rheumatologic--normal range of motion. Psychiatric--normal affect. Results & Data Results & Data ([facility]) Vital Signs (Past 12 Hours) Vital Signs Temp Pulse Resp BP Pulse Ox 11/05/20 23:00 70 24 172/82 H 96 11/05/20 22:30 72 23 166/88 H 96 11/05/20 22:00 77 21 179/97 H 96 11/05/20 20:50 74 16 196/68 H 97 11/05/20 20:35 15 96 11/05/20 19:02 98.1 F 80 18 175/76 H 95 Laboratory Results Laboratory Results WBC 7.21 K/uL (4.8-10.8) 11/05/20 21:20 RBC 4.13 M/uL (4.2-5.4) L 11/05/20 21:20 Hgb 11.9 g/dL (12.0-16.0) L 11/05/20 21:20 Hct 35.2 % (37-47) L 11/05/20 21:20 MCV 85.2 fL (80-100) 11/05/20 21: MCH 28.8 pg (25-34) 11/05/20 21:20 MCHC 33.8 g/dL (32-36) 11/05/20 21:20 RDW Std Deviation 40.3 fL (36.4-46.3) 11/05/20 21:20 RDW Coeff of Hilary 13.0 % (11.5-14.5) 11/05/20 21:20 Plt Count 189 K/uL (130-400) 11/05/20 21:20 MPV 9.9 fL (7.4-10.4) 11/05/20 21:20 Immature Gran % (Auto) 0.1 % 11/05/20 21:20 Neut % (Auto) 70.3 % 11/05/20 21:20 Lymph % (Auto) 21.8 % 11/05/20 21:20 [place] % (Auto) 6.0 % 11/05/20 21:20 Eos % (Auto) 1.4 % 11/05/20 21:20 Baso % (Auto) 0.4 % 11/05/20 21:20 Neut # (Auto) 5.07 K/uL (1.4-6.5) 11/05/20 21:20 Lymph # (Auto) 1.57 K/uL (1.2-3.4) 11/05/20 21:20 [place] # (Auto) 0.43 K/uL (0.11-0.59) 11/05/20 21:20 Eos # (Auto) 0.10 K/uL (0-0.5) 11/05/20 21:20 Baso # (Auto) 0.03 K/uL (0-0.2) 11/05/20 21:20 Immature Gran # (Auto) 0.01 K/uL (0.00-0.02) 11/05/20 21:20 PT 10.3 Seconds (9.0-12.0) 11/05/20 21:20 INR 1.0 (0.9-1.1) 11/05/20 21:20 APTT 25.2 Seconds (21.0-31.0) 11/05/20 21: PTT Ratio 1.0 11/05/20 21:20 Sodium 141 mmol/L (136-145) 11/05/20 21:20 Potassium 4.3 mmol/L (3.5-5.1) 11/05/20 21:20 Chloride 107 mmol/L (98-107) 11/05/20 21:20 Carbon Dioxide 28 mmol/L (21-32) 11/05/20 21:20 Anion Gap 6.0 (3-11) 11/05/20 21:20 BUN 22 mg/dl (7-18) H 11/05/20 21:20 Creatinine 0.86 mg/dl (0.6-1.2) 11/05/20 21:20 Est Cr Clr Drug Dosing Not Reportable 11/05/20 21: Est GFR ( Amer) 69.9 11/05/20 21:20 Est GFR (Non-Af Amer) 60.3 11/05/20 21:20 BUN/Creatinine Ratio 25.4 (10-20) H 11/05/20 21:20 Glucose 172 mg/dl (70-99) H 11/05/20 21:20 Calcium 10.1 mg/dl (8.5-10.1) 11/05/20 21:20 Magnesium 2.0 mg/dl (1.8-2.4) 11/05/20 21:20 Total Bilirubin 0.3 mg/dl (0.2-1) 11/05/20 21:20 AST 18 U/L (15-37) 11/05/20 21:20 ALT 24 U/L (12-78) 11/05/20 21:20 Alkaline Phosphatase 60 U/L (45-117) 11/05/20 21:20 Total Creatine Kinase 68 U/L (26-192) 11/05/20 21:20 Troponin I < 0.015 ng/ml (0-0.045) 11/05/20 21:20 Total Protein 7.4 gm/dl (6.4-8.2) 11/05/20 21:20 Albumin 3.8 gm/dl (3.4-5.0) 11/05/20 21:20 Globulin 3.6 gm/dl (2.5-4.0) 11/05/20 21:20 Albumin/Globulin Ratio 1.1 (0.9-2) 11/05/20 21:20 TSH 1.940 uIu/ml (0.300-4.500) 11/05/20 21:20 Urine Color Yellow 11/05/20 23:05 Urine Appearance Cloudy (Clear) A 11/05/20 23:05 Urine pH 5.0 (4.5-7.5) 11/05/20 23:05 Ur Specific [place] 1.015 (1.000-1.030) 11/05/20 23:05 Urine Protein Negative (Negative) 11/05/20 23:05 Urine Glucose (UA) Negative (Negative) 11/05/20 23:05 Urine Ketones Negative (Negative) 11/05/20 23:05 Urine Blood Negative (Negative) 11/05/20 23:05 Urine Nitrite Negative (Negative) 11/05/20 23:05 Urine Bilirubin Negative (Negative) 11/05/20 23:05 Urine Urobilinogen Negative (Negative) 11/05/20 23:05 Ur Leukocyte Esterase 2+ (Negative) H 11/05/20 23:05 Urine WBC (Auto) 10-30 /hpf (0-5) H 11/05/20 23:05 Urine RBC (Auto) 0-4 /hpf (0-4) 11/05/20 23:05 U Hyaline Cast (Auto) 1-5 /lpf (0-5) 11/05/20 23:05 U Epithel Cells (Auto) 20-30 /lpf (0-5) H 11/05/20 23:05 Urine Bacteria (Auto) Negative (Negative) 11/05/20 23:05 COVID-19 Eval Order Covid19 [facility]Now [facility] 11/05/20 21:44 SARS-CoV-2, RNA, NAAT NEGATIVE (NEGATIVE) 11/05/20 21:44 Diagnostic Findings [facility] Patient: HERBER GRAVES (Female) : 34 Status: ER Date: 11/05/20 23:50 Room #: History: syncope Slices: 58 Priors: Tech: FabiolaFidelina cleaning @ [phone] Exams: CT HEAD Contrast: Accession Numbers: [id number] Preliminary Findings Only See Final Report For Complete Findings CT HEAD: No intracranial hemorrhage. Atrophy and mild chronic microvascular ischemic changes. Paranasal sinuses and mastoid air cells are clear. No fracture. Radiologist: Preston Patrick MD Study ready at 23:55 and initial results transmitted at 00:13 *This report constitutes a preliminary interpretation only. Non-acute findings felt to be unrelated to the clinical presentation may not be discussed in this report. The study will be interpreted and a final report will be generated by the local Radiologist the following shift. To reach the hospital radiology department call [phone]. If a discrepancy is found between the preliminary and final interpretations of this study, please notify us via our Client Portal at [email or web address] under QA Exams.You can also fax this report with a description of the discrepancy, or include the final report, to our daytime fax number [phone].If faxing, please indicate the severity of discrepancy using one of the following categories: [ ] 1 - Agree/Informational [ ] 2 - Unlikely to Affect Management [ ] 3 - Possible Eventual Change of Management [ ] 4 - Probable Immediate Change of Management For all other patient related information, please fax us at [phone]. [id number] Code Status & VTE Plan Code Status Full code VTE Prophylaxis Plan VTE Prophylaxis will be ordered: Yes PG Care Time/CCT Total # of Minutes Spent Total Time Spent with Patient: Total time spent is greater than 50% in coordination of care (as documented) at patient's floor/unit and/or counseling patient: Coding Level of Care Code 18058 OBS Care - Level 3 Diagnoses Syncope R55 Syncope type: unspecified Dyslipidemia E78.5 Polymyalgia rheumatica M35.3 Hypertension I10 Diabetes mellitus with insulin therapy E11.9; Z79.4 (1) Syncope Syncope type: unspecified Qualified Code(s): R55 - Syncope and collapse
[2020-11-06] MEDS ORDERED: GLUCAGON FOR INJ 1 MG VIAL SQ PRN (00:23)
[2020-11-06] MEDS ORDERED: ONDANSETRON INJ 2 MG/ML 2 ML VIAL IV PRN (00:23)
[2020-11-06] MEDS ORDERED: DEXTROSE 50% 50 ML SYRINGE IV PRN (00:23)
[2020-11-06] MEDS ORDERED: CARBOHYDRATES FOR HYPOGLYCEMIA PO PRN (00:23)
[2020-11-06] MEDS ORDERED: ACETAMINOPHEN 325 MG TAB PO PRN (00:23)
[2020-11-06] MEDS ORDERED: GLUCOSE 40% GEL 15 GM TUBE PO PRN (00:23)
[2020-11-06] MEDS ORDERED: GLUCOSE 10 TABS/TUBE PO PRN (00:23)
[2020-11-06] MEDS ORDERED: MECLIZINE 12.5 MG TAB PO PRN (00:23)
[2020-11-06 07:32] LABS: Basophils # (auto) 0.05 K/uL (0-0.2); Basophils % (auto) 0.6 %; Eosinophils # (auto) 0.18 K/uL (0-0.5); Eosinophils % (auto) 2.2 %; Hematocrit (blood only) 37.4 % (37-47); Hemoglobin 12.5 g/dL (12.0-16.0); Immature Granulocytes # (auto) 0.02 K/uL (0.00-0.02); Immature Granulocytes % (auto) 0.2 %; Lymphocytes # (auto) 2.13 K/uL (1.2-3.4); Lymphocytes % (auto) 26.4 %; Mean Corpuscular Hemoglobin 28.8 pg (25-34); Mean Corpuscular Hgb Conc 33.4 g/dL (32-36); Mean Corpuscular Volume 86.2 fL (80-100); Mean Platelet Volume 10.1 fL (7.4-10.4); Monocytes # (auto) 0.48 K/uL (0.11-0.59); Monocytes % (auto) 5.9 %; Neutrophils # (auto) 5.22 K/uL (1.4-6.5); Neutrophils % (auto) 64.7 %; Platelet Count 208 K/uL (130-400); RDW Coefficient of Variation 13.1 % (11.5-14.5); RDW Standard Deviation 41.3 fL (36.4-46.3); Red Blood Count 4.34 M/uL (4.2-5.4); White Blood Count 8.08 K/uL (4.8-10.8)
--- NOTE | 2020-11-06 07:37 | CT Scan Report ---
HEAD CT NONCONTRAST CT DOSE: 537.48 mGy.cm HISTORY: syncope TECHNIQUE: Multiaxial CT images of the head were performed without the use of intravenous contrast. A utomated exposure control was utilized for this study. A dose lowering technique was utilized adheri ng to the principles of ALARA. Comparison: None. Findings: The paranasal sinuses and mastoid air cells are clear. The calvarium and skull base are int act. There is no mass, hematoma, midline shift, acute infarct. White matter hypodensity is nonspecifi c but suggestive of microvascular ischemic change. The ventricles and sulci demonstrate mild age-rela rekha involutional changes. Impression: No acute intracranial abnormality. Atrophy and microvascular ischemic changes. ACT 112: Negative or not required by law. Electronically signed by: Hilario Leonard M.D. 11/06/2020 7:35 AM
[2020-11-06 07:49] LABS: Alanine Aminotransferase 25 U/L (12-78); Albumin Level 3.9 gm/dl (3.4-5.0); Aspartate Aminotransferase 25 U/L (15-37); BUN Creatinine Ratio 21.3 (10-20); Blood Urea Nitrogen 19 mg/dl (7-18); Calcium 10.3 mg/dl (8.5-10.1); Carbon Dioxide 28 mmol/L (21-32); Chloride 105 mmol/L (98-107); Creatinine Clr Calc Pharmacy 30.7 ml/min; Est GFR (African American) 66.2; Est GFR (Non-African American) 57.1; Glucose 150 mg/dl (70-99); Magnesium 2.1 mg/dl (1.8-2.4); Potassium 4.2 mmol/L (3.5-5.1); Sodium 140 mmol/L (136-145)
[2020-11-06 07:53] LABS: Albumin Globulin Ratio 1.1 (0.9-2); Alkaline Phosphatase 58 U/L (45-117); Bilirubin,Total 0.6 mg/dl (0.2-1); Globulin 3.6 gm/dl (2.5-4.0); Total Protein 7.5 gm/dl (6.4-8.2); Troponin I < 0.015 ng/ml (0-0.045)
[2020-11-06 08:05] LABS: Estimated Average Glucose 174 mg/dl; Hemoglobin A1C 7.7 % (4.5-5.6)
[2020-11-06] MEDS: INSULIN ASPART 100 UNITS/ML 3 ML PEN SC SCH ×4 (08:08→20:35)
[2020-11-06] MEDS: HEPARIN SOD 5,000 UNIT/0.5 ML VIAL SQ SCH ×2 (08:08→20:35)
[2020-11-06] MEDS: INSULIN HUMAN NPH SC SCH (08:51)
[2020-11-06] MEDS ORDERED: CYANOCOBALAMIN 500 MCG TABLET (VITAMIN B-12) PO SCH (09:00)
[2020-11-06] MEDS ORDERED: predniSONE 1 MG TAB PO SCH (09:00)
[2020-11-06] MEDS ORDERED: LOSARTAN POTASSIUM 25 MG TAB PO SCH ×2 (09:00→17:00)
[2020-11-06] MEDS ORDERED: ASPIRIN 81 MG ECTAB PO SCH ×2 (09:00→17:00)
[2020-11-06] MEDS ORDERED: POTASSIUM CITRATE 10 MEQ TAB PO SCH (09:00)
[2020-11-06] MEDS ORDERED: PRAVASTATIN SOD 20 MG TAB PO SCH ×2 (09:00→17:00)
[2020-11-06] MEDS ORDERED: CHOLECALCIFEROL 1,000 UNITS 25 MCG TAB PO SCH (09:00)
[2020-11-06] MEDS ORDERED: LORATADINE 10 MG TAB PO SCH ×2 (09:00→17:00)
--- NOTE | 2020-11-06 10:55 | XCELERA ---
[id number] \\[id number]}___[id number]
--- NOTE | 2020-11-06 21:43 | Hospitalist Progress Note ---
Date of Service November 06, 2020 Assessment & Plan (1) Syncope: Syncopal episodes x2- The patient will be admitted to telemetry for serial cardiac enzymes, serial EKG's, cardiac rhythm monitoring and a 2-D echocardiogram with Dopplers. : Symptoms concerning for arrhythmia, will consult with cardio. reviewed tele monitor: none noted, may need outpatient monitor. (2) Dyslipidemia: Continue pravastatin 20 mg daily (3) Polymyalgia rheumatica: On prednisone 1 mg p.o. daily, will hold on stress dose steroids (4) Hypertension: Continue aspirin and losartan (5) Diabetes mellitus with insulin therapy: Continue NPH [address] on Accu-Cheks before meals and at bedtime with NovoLog coverage for scale Relatively quick recovery after these 2 syncopal episodes, argues against a hypoglycemic event, and family tested her glucose shortly after the second event and it was in the 180s. Admission and Anticipated Discharge Date Admission Date: November 05, 2020 Subjective Patient reports no new symptoms today. She feels well. No arrhythmia on monitor Review of Systems Review of Systems: All systems reviewed & are unremarkable except as noted in HPI & below Physical Exam Physical Exam: Patient is lying in bed with no acute distress. She appears comfortable HEENT--PERRL, EOMI Neck--supple. No JVD. No bruits. Thyroid normal, trachea midline, no adenopathy. Heart--normal S1 and S2. No murmurs, rubs or gallops. Lungs--clear bilaterally, no respiratory distress, no accessory muscle use. Abdomen--normal bowel sounds and soft. Nontender. Nondistended, no hernias or masses, no organomegaly. Extremities--no cyanosis or clubbing. No edema. Dermatologic--normal skin turgor, Neurologic--cranial nerves II through XII grossly intact. Rheumatologic--normal range of motion. Psychiatric--normal affect. Results & Data Results & Data ([facility]) Vital Signs (Past 12 Hours) Vital Signs Temp Pulse Pulse Resp BP Pulse Ox 11/06/20 19:11 36.6 C 73 17 154/81 H 94 11/06/20 15:05 75 11/06/20 11:06 36.7 C 74 16 180/65 H 96 PG Care Time/CCT Total # of Minutes Spent Total Time Spent with Patient: Total time spent is greater than 50% in coordination of care (as documented) at patient's floor/unit and/or counseling patient: Coding Level of Care Code 61063 Subseq Obs Care Lvl 3 Diagnoses Syncope R55 Syncope type: unspecified Dyslipidemia E78.5 Polymyalgia rheumatica M35.3 Hypertension I10 Diabetes mellitus with insulin therapy E11.9; Z79.4 Time Spent (min) 35 (1) Syncope Syncope type: unspecified Qualified Code(s): R55 - Syncope and collapse
[2020-11-07 07:14] LABS: Basophils # (auto) 0.03 K/uL (0-0.2); Basophils % (auto) 0.4 %; Eosinophils # (auto) 0.31 K/uL (0-0.5); Eosinophils % (auto) 3.8 %; Hematocrit (blood only) 36.7 % (37-47); Hemoglobin 12.3 g/dL (12.0-16.0); Immature Granulocytes # (auto) 0.02 K/uL (0.00-0.02); Immature Granulocytes % (auto) 0.2 %; Lymphocytes # (auto) 2.17 K/uL (1.2-3.4); Lymphocytes % (auto) 26.6 %; Mean Corpuscular Hgb Conc 33.5 g/dL (32-36); Mean Corpuscular Volume 86.6 fL (80-100); Mean Platelet Volume 10.1 fL (7.4-10.4); Monocytes # (auto) 0.62 K/uL (0.11-0.59); Monocytes % (auto) 7.6 %; Neutrophils # (auto) 5.01 K/uL (1.4-6.5); Neutrophils % (auto) 61.4 %; Platelet Count 199 K/uL (130-400); RDW Coefficient of Variation 13.2 % (11.5-14.5); RDW Standard Deviation 42.1 fL (36.4-46.3); Red Blood Count 4.24 M/uL (4.2-5.4); White Blood Count 8.16 K/uL (4.8-10.8)
[2020-11-07 07:31] LABS: Alanine Aminotransferase 24 U/L (12-78); Albumin Level 3.7 gm/dl (3.4-5.0); Aspartate Aminotransferase 22 U/L (15-37); BUN Creatinine Ratio 31.3 (10-20); Blood Urea Nitrogen 33 mg/dl (7-18); Calcium 10.1 mg/dl (8.5-10.1); Carbon Dioxide 27 mmol/L (21-32); Chloride 102 mmol/L (98-107); Creatinine Clr Calc Pharmacy 25.8 ml/min; Est GFR (African American) 55.6; Est GFR (Non-African American) 47.9; Glucose 139 mg/dl (70-99); Potassium 4.5 mmol/L (3.5-5.1); Sodium 140 mmol/L (136-145)
[2020-11-07 07:36] LABS: Albumin Globulin Ratio 1.1 (0.9-2); Alkaline Phosphatase 61 U/L (45-117); Bilirubin,Total 0.5 mg/dl (0.2-1); Globulin 3.5 gm/dl (2.5-4.0); Total Protein 7.2 gm/dl (6.4-8.2); Troponin I < 0.015 ng/ml (0-0.045)
[2020-11-07] MEDS: INSULIN ASPART 100 UNITS/ML 3 ML PEN SC SCH ×2 (07:48→12:01)
[2020-11-07] MEDS: INSULIN HUMAN NPH SC SCH (08:04)
[2020-11-07] MEDS: HEPARIN SOD 5,000 UNIT/0.5 ML VIAL SQ SCH (08:05)
--- NOTE | 2020-11-07 10:21 | Cardiology Consultation ---
Date of Consultation November 07, 2020 Assessment & Plan (1) Syncope: She describes 2 discrete episodes of loss of consciousness with none prior or since. These are worrisome, and I suspect a cardiac arrhythmia. There appears to be no evidence that this was a neurologic event. She does have a right bundle branch block on her electrocardiogram so she could have had transient AV block, additionally she could have had atrial fibrillation with a rapid heart rate causing loss of consciousness or perhaps more likely a pause in her rhythm with conversion of atrial fibrillation (which would be more likely to cause momentary loss of consciousness). Either way I think we need to try to document an arrhythmia before we proceed with any intervention. I would recommend long-term monitoring. 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 She is scheduled for Covid vaccine tomorrow morning at 1030 here at the hospital and she would like to keep that visit. History of Present Illness Reason for Consultation: Loss of consciousness Attending Physician: Fernando Lamar History of Present Illness This is an 89-year-old woman with a history of diabetes mellitus, dyslipidemia, hypertension, GERD, osteoporosis but to my knowledge no known cardiac history. She presents with 2 syncopal events, both occurring on November 05, 2020, 1 at 1130 and 1 at 1330. The first was not witnessed however the second was. Evidently she awoke quickly after the event without a postictal state and no seizure activity. The event itself apparently lasted less than 60 seconds. As an outpatient she was on losartan 12-1/2 mg daily but no negative chronotropic medications. Evaluation here included electrocardiography on November 05, 2020 which showed sinus rhythm at 81 bpm with a right bundle branch block pattern and a borderline MN interval at just about 200 ms. There were some minor lateral ST-T abnormalities. An echocardiogram done November 06, 2020 showed normal left ventricular size and function with borderline left ventricular hypertrophy, mild aortic insufficiency and moderate mitral regurgitation. Left atrium was mildly enlarged. Troponin measurements were drawn and were negative x3 and there were no other significant blood test abnormalities. A chest x-ray and a head CT were done on admission and were unremarkable. She did have a carotid Doppler done August 2020 which was read as showing less than 50% stenosis in the right and left internal carotid arteries. At the time my evaluation she recounted the episodes very clearly, the same as what is in the chart. She has had no prior episodes and none since. She is very alert and oriented. She has no other cardiovascular symptoms such as shortness of breath, dyspnea on exertion, chest discomfort or palpitations. Allergies Allergy/AdvReac Type Severity Reaction Status Date / Time levofloxacin [From Levaquin] Allergy Unknown Joint Pain Verified 11/05/20 22:48 pollen extracts Allergy Unknown Sinus Verified 11/05/20 22:48 Congestion mometasone furoate AdvReac Unknown Could not Verified 11/05/20 22:48 [From Asmanex Twisthaler] sleep montelukast [From Singulair] AdvReac Unknown Could not Verified 11/05/20 22:48 sleep Dust Allergy Unknown Sinus Uncoded 11/05/20 22:48 Congestion Home Medications Medication Instructions Recorded Confirmed Type aspirin 81 mg tablet,delayed 81 mg PO DAILY 04/15/19 11/05/20 History release cholecalciferol (vitamin D3) 25 1,000 units PO DAILY #30 cap 04/15/19 11/05/20 Rx mcg (1,000 unit) capsule mecobalamin (vitamin B12) 1,000 1,000 mcg SL DAILY #30 tab 04/15/19 11/05/20 Rx mcg disintegrating tablet,sublingual potassium citrate 10 mEq (1,080 10 meq PO DAILY #90 tab 10/06/19 11/05/20 Rx mg) tablet,extended release pravastatin 20 mg tablet 20 mg PO DAILY #90 tab 02/24/20 11/05/20 Rx insulin NPH isoph U-100 human 100 21 unit SUBCUT DAILY 90 Days #18.9 06/09/20 11/05/20 Rx unit/mL (3 mL) subcutaneous pen ml loratadine 10 mg capsule 10 mg PO DAILY #30 cap 09/16/20 11/05/20 Rx losartan 25 mg tablet 12.5 mg PO DAILY tab 11/04/20 11/05/20 History azelastine 2 sprays INTNAS DAILY PRN 11/05/20 11/05/20 History meclizine 12.5 mg PO TID PRN 11/05/20 11/05/20 History prednisone 1 mg PO QAM 11/05/20 11/05/20 History Patient History Medical History Generalized osteoarthritis of multiple sites Nephrolithiasis Pneumonia Sensorineural hearing loss (SNHL) of both ears Thyroid nodule Low suspicion Surgical History H/O cystoscopy History of cataract surgery History of lithotripsy History of lumpectomy Family History Father Allergic rhinitis Social History Smoking Status: Never smoker Second Hand Exposure: No; Hx Alcohol Use: No Hx Substance Use: No Preferred Language: Slovak Communication Ability: Effective Visual Impairment: Diminished Hearing Ability: Use of Hearing Aid Gyn Required: No Beliefs That Will Affect Care: None marital status: / Current Living Situation: Family Current Living Situation Comment: son lives her current occupational status: retired Other Information That Helps Us Care for You: No Feels Safe at Home: Yes Safety Concerns: Feels Safe At This Time Childhood Exposure to Second-Hand Smoke: No Seatbelt Use: always Sunscreen Use: No Assistive Devices: None Review of Systems Review of Systems: All systems reviewed & are unremarkable except as noted in HPI & below Physical Exam Physical Exam: Constitutional: Alert, cooperative and in no distress. HEENT: Unremarkable Neck: No jugular venous distention, carotid pulses are normal and equal bilaterally without bruits. Pulmonary: Clear to auscultation bilaterally. Cardiac: Regular rhythm with a grade 2/6 holosystolic murmur at the apex, no gallop or rub. Abdomen: Soft, nontender with normal bowel sounds. Extremities: No edema. Distal pulses intact. Neurologic: No focal findings. Gait is steady. Skin: No rash, ecchymoses or petechiae. Results & Data ([facility]) Vital Signs (Past 12 Hours) Vital Signs Temp Pulse Pulse Resp BP Pulse Ox 11/07/20 08:13 36.7 C 67 20 154/74 H 94 11/07/20 08:00 67 11/07/20 03:47 36.6 C 66 17 146/65 H 95 11/06/20 23:06 36.9 C 66 17 128/65 95 Laboratory Results Cardiac Enzymes 11/06/20 11/06/20 11/07/20 Range/Units 12:53 20:58 06:43 AST 22 (15-37) U/L Troponin I < 0.015 < 0.015 < 0.015 (0-0.045) ng/ml CBC 11/07/20 Range/Units 06:43 WBC 8.16 (4.8-10.8) K/uL RBC 4.24 (4.2-5.4) M/uL Hgb 12.3 (12.0-16.0) g/dL Hct 36.7 L (37-47) % Plt Count 199 (130-400) K/uL Neut # (Auto) 5.01 (1.4-6.5) K/uL Lymph # (Auto) 2.17 (1.2-3.4) K/uL [place] # (Auto) 0.62 H (0.11-0.59) K/uL Eos # (Auto) 0.31 (0-0.5) K/uL Baso # (Auto) 0.03 (0-0.2) K/uL Comprehensive Metabolic Panel 11/07/20 Range/Units 06:43 Sodium 140 (136-145) mmol/L Potassium 4.5 (3.5-5.1) mmol/L Chloride 102 (98-107) mmol/L Carbon Dioxide 27 (21-32) mmol/L BUN 33 H D (7-18) mg/dl Creatinine 1.04 (0.6-1.2) mg/dl Glucose 139 H (70-99) mg/dl Calcium 10.1 (8.5-10.1) mg/dl AST 22 (15-37) U/L ALT 24 (12-78) U/L Alkaline Phosphatase 61 (45-117) U/L Total Protein 7.2 (6.4-8.2) gm/dl Albumin 3.7 (3.4-5.0) gm/dl Intake and Output 11/06/20 11/07/20 11/07/20 22:59 06:59 14:59 Intake Total 300 / 575 Balance 300 / 575 Intake: Oral 300 / 575 Other: # Unmeasured Voids 3 3 Weight 51.3 kg Weight Measurement Method Standing Scale Diagnostic Findings Telemetry: Sinus rhythm with PVCs, no significant arrhythmia PG Care Time/CCT Total # of Minutes Spent Total Time Spent with Patient: Total time spent is greater than 50% in coordination of care (as documented) at patient's floor/unit and/or counseling patient: Coding Level of Care Code 69554 Initial Inpt Care Lvl 3 Diagnoses Syncope R55 Syncope type: unspecified (1) Syncope Syncope type: unspecified Qualified Code(s): R55 - Syncope and collapse
--- NOTE | 2020-11-07 11:05 | Electrocardiogram Report ---
Test Reason : Blood Pressure : / mmHG Vent. Rate : 081 BPM Atrial Rate : 081 BPM P-R Int : 194 ms QRS Dur : 122 ms QT Int : 404 ms P-R-T Axes : 082 094 055 degrees QTc Int : 469 ms Sinus rhythm with occasional Premature ventricular complexes Right bundle branch block T wave abnormality, consider lateral ischemia Abnormal ECG When compared with ECG of 02-MAY-2016 16:55, Premature ventricular complexes are now Present Right bundle branch block is now Present Confirmed by David Hammond ([id number]) on 11/07/2020 11:05:50 AM Referred By: Meeta Gilmore Confirmed By:David Hammond
[2020-11-07] MEDS ORDERED: POTASSIUM CITRATE 10 MEQ TAB PO SCH (17:00)
[2020-11-07] MEDS ORDERED: CYANOCOBALAMIN 500 MCG TABLET (VITAMIN B-12) PO SCH (17:00)
[2020-11-07] MEDS ORDERED: CHOLECALCIFEROL 1,000 UNITS 25 MCG TAB PO SCH (17:00)
[2020-11-07] MEDS ORDERED: predniSONE 1 MG TAB PO SCH (17:00)
--- NOTE | 2020-11-14 23:17 | Discharge Summary ---
Date of Service November 07, 2020 Admission HPI Per Admitting Provider The patient is an 89-year-old female with a past medical history including nephrolithiasis, SNHL of both ears, lightheadedness, dyslipidemia, proliferative diabetic retinopathy in both eyes, polymyalgia rheumatica, hypertension, GERD without esophagitis, diabetes mellitus with insulin therapy, corticosteroid induced osteoporosis, chronic sinusitis, anemia and allergic rhinitis. Her daughter is in attendance in the emergency department this evening, and reports that while she was on the phone with her mother, she lost connection, and thought maybe it was due to a loss of connection on cell phone. However, the patient reports that when she came to she saw that her cell phone was on the floor, and wondered how he got there, and then called her daughter back. The second episode was witnessed by her daughter, and was preceded by the patient telling her daughter "he it goes again,and then passed out. Her daughter then called EMS, and brought the patient to the emergency department for assessment. Patient denies loss of bowel or bladder control, and did not have any issues with confusion after each episode. Prior to today, she did not have any symptoms like this in the past. She denies any recent travels or sick exposures. Her COVID-19 test was negative in the ED this evening. Principal Diagnosis syncope Discharge Exam Patient is lying in bed with no acute distress. She appears comfortable HEENT--PERRL, EOMI Neck--supple. No JVD. No bruits. Thyroid normal, trachea midline, no adenopathy. Heart--normal S1 and S2. No murmurs, rubs or gallops. Lungs--clear bilaterally, no respiratory distress, no accessory muscle use. Abdomen--normal bowel sounds and soft. Nontender. Nondistended, no hernias or masses, no organomegaly. Extremities--no cyanosis or clubbing. No edema. Dermatologic--normal skin turgor, Neurologic--cranial nerves II through XII grossly intact. Rheumatologic--normal range of motion. Psychiatric--normal affect. Discharge Data Allergies Allergy/AdvReac Type Severity Reaction Status Date / Time levofloxacin [From Levaquin] Allergy Unknown Joint Pain Verified 11/05/20 22:48 pollen extracts Allergy Unknown Sinus Verified 11/05/20 22:48 Congestion mometasone furoate AdvReac Unknown Could not Verified 11/05/20 22:48 [From Asmanex Twisthaler] sleep montelukast [From Singulair] AdvReac Unknown Could not Verified 11/05/20 22:48 sleep Dust Allergy Unknown Sinus Uncoded 11/05/20 22:48 Congestion Consultations 11/05/20 22:27 ED Decision to Admit Stat 11/06/20 00:23 Consult Case Management - Discharge Planning Routine 11/06/20 10:01 Consult Cardiology Routine Ordered Studies 11/05/20 23:28 CT head/brain wo con Urgent Hospital Course (1) Syncope: Syncopal episodes x2- The patient will be admitted to telemetry for serial cardiac enzymes, serial EKG's, cardiac rhythm monitoring and a 2-D echocardiogram with Dopplers. : Symptoms concerning for arrhythmia, will consult with cardio. reviewed tele monitor: none noted, may need outpatient monitor. Appreciate input from cardio She describes 2 discrete episodes of loss of consciousness with none prior or since. These are worrisome, and I suspect a cardiac arrhythmia. There appears to be no evidence that this was a neurologic event. She does have a right bundle branch block on her electrocardiogram so she could have had transient AV block, additionally she could have had atrial fibrillation with a rapid heart rate causing loss of consciousness or perhaps more likely a pause in her rhythm with conversion of atrial fibrillation (which would be more likely to cause momentary loss of consciousness). Either way I think we need to try to document an arrhythmia before we proceed with any intervention. I would recommend long- term monitoring. I would start with a 30-day monitor which I can arrange for her, if she goes home today we can have it sent to her house, if she stays until tomorrow morning we can have her stop by the office and generally we have them that she can picker feeder. She is scheduled for Covid vaccine tomorrow morning at 1030 here at the hospital and she would like to keep that visit. (2) Dyslipidemia: Continue pravastatin 20 mg daily (3) Polymyalgia rheumatica: On prednisone 1 mg p.o. daily, will hold on stress dose steroids (4) Hypertension: Continue aspirin and losartan (5) Diabetes mellitus with insulin therapy: Continue NPH [address] on Accu-Cheks before meals and at bedtime with NovoLog coverage for scale Relatively quick recovery after these 2 syncopal episodes, argues against a hypoglycemic event, and family tested her glucose shortly after the second event and it was in the 180s. Total Time Total Time Spent Total Time Spent (In Minutes): 32 Total Time Includes: Examination of the Patient, Discharge Planning and Medication Reconciliation Discharge Plan Discharge Items Patient Disposition: Home - Self-Care Reason For Visit: SYNCOPE Discharge Diagnosis: syncope Activity: Resume your previous activity Non-emergency contact: Primary Care Provider Call non-emergency contact if: you have any medication questions Follow-up/Referrals: Baldomero Joseph MD [Primary Care Provider] - 11/12/20 9:30 am Diet: Regular Addtl Attending Provider Instructions: You were seen for observation due to having "passed out" It likely appears that you had a heart rhythm problem. You had a heart monitor in the hospital but we were not able to find a any changes while you were here. We will recommend a heart monitor at home. The cardiology clinic will set you up with one tomorrow. Pending Studies at Discharge: No Stand-Alone Forms: My [facility] Syn[employer], Smoking Cessation Medications and DC Order Prescriptions: Continued aspirin [Adult Low Dose Aspirin] 81 mg tablet,delayed release (DR/EC) 81 mg PO DAILY RF: 0 mecobalamin (vitamin B12) 1,000 mcg tablet,disintegrating 1,000 mcg SL DAILY Qty: 30 RF: 0 cholecalciferol (vitamin D3) 1,000 unit capsule 1,000 units PO DAILY Qty: 30 RF: 11 pravastatin 20 mg tablet 20 mg PO DAILY Qty: 90 RF: 3 Humulin N NPH Insulin KwikPen 100 unit/mL (3 mL) insulin pen 21 unit subcut DAILY 90 Days Qty: 18.9 RF: 3 loratadine 10 mg capsule 10 mg PO DAILY Qty: 30 RF: 5 losartan 25 mg tablet 12.5 mg PO DAILY RF: 0 meclizine 12.5 mg tablet 12.5 mg PO TID PRN (Reason: Dizziness) RF: 0 azelastine 137 mcg (0.1 %) aerosol,spray 2 sprays INTNAS DAILY PRN (Reason: Allergy Symptoms) RF: 0 prednisone 1 mg tablet 1 mg PO QAM RF: 0 No Action potassium citrate 10 mEq (1,080 mg) tablet extended release 10 meq PO DAILY Qty: 90 RF: 3 doxycycline hyclate 100 mg tablet 100 mg PO BID Qty: 20 RF: 2 Discharge Orders: Discharge Order (Routine); Ordered 11/07/20 Ordered By: Fernando Rizo/Other Patient Handouts: Managing Type 2 Diabetes, Causes of Syncope Admission Data Admit Date/Time: 11/05/20 23:36 Attending Provider: Fernando Lamar Admit Provider: Kerwin Chin Primary Care Provider: Baldomero Joseph Other Providers: Kerwin Chin ; David Hammond Other Interventions: Discharge Summary Assessment (RN) Last Done: 11/07/20 12:29 Coding Level of Care Code 12976 OBS Care - Discharge Diagnoses Syncope R55 Syncope type: unspecified Dyslipidemia E78.5 Polymyalgia rheumatica M35.3 Hypertension I10 Diabetes mellitus with insulin therapy E11.9; Z79.4
== END 2020-11-07 13:19 | disposition home or self-care (01) ==
LOC: ED 18:52 → 2S 18:52 → SUATTDRO 23:36 → 2S 11-06 02:31

== ENCOUNTER 2020-12-21 13:54 | Observation (INO) ==
[2020-12-21] MEDS ORDERED: BACITRACIN OINT 0.9 GM PKT ONE (14:15)
[2020-12-21] MEDS ORDERED: LIDOCAINE HCL 1% 20 ML VIAL ONE (14:15)
[2020-12-21] MEDS ORDERED: BACITRACIN INJ 50,000 UNIT VIAL ONE (14:15)
[2020-12-21] MEDS ORDERED: MIDAZOLAM HCL 5 MG/ML 1 ML VIAL ONE (14:19)
[2020-12-21] MEDS ORDERED: fentaNYL citrate 100 MCG/2 ML VIAL ONE (14:19)
--- NOTE | 2020-12-21 14:44 | History & Physical Bridge Note ---
Date of Service December 21, 2020 History & Physical Bridge Note I have examined the patient, reviewed the History & Physical and in the interval since the performance of the History & Physical I have noted the following changes of clinical significance: no changes noted. I reviewed the indications, procedure, risks and alternatives with the patient, answered all questions. Consent obtained. Patient understands and agrees to the procedure. I also reviewed the risks and use of sedation, patient understands and consent obtained.
--- NOTE | 2020-12-21 14:46 | Pre Anesthesia Assessment ---
Date of Service December 21, 2020 Pre Sedation Assessment Vital Signs Temp Pulse Resp BP Pulse Ox 12/21/20 14:00 36.6 C 46 L 16 230/70 H 97 Cardiovascular + bradycardic Respiratory normal respiratory effort, lungs clear to auscultation Pre-Sedation Airway Assessment Smoking Status: Never smoker Hx Sleep Apnea: No Hx Difficult Intubation: No Short, Thick Neck: No Thyromental Distance: > or= 3.5 Finger Breadths Oral Cavity: + Dentures Mallampati Class: IV ASA: ASA3 NPO Status Date of Last Intake of Fluids: 12/21/20 Time of Last Intake of Fluids: 07:00 Date of Last Intake of Solid Food: 12/21/20 Time of Last Intake of Solid Foods: 07:00 Procedure Planning Contraindications for Sedation: none Current Medications Reviewed: Yes Notes The planned sedation has been discussed with the patient. Informed Consent was obtained. I have identified the patient, determined the appropriateness of sedation and have assessed the patient immediately prior to the procedure. All medicine(s) and interventions are by my order.
[2020-12-21] MEDS ORDERED: ACETAMINOPHEN W/CODEINE #3 1 TAB PO PRN (16:11)
[2020-12-21] MEDS ORDERED: ACETAMINOPHEN 325 MG TAB PO PRN (16:11)
[2020-12-21] MEDS ORDERED: MECLIZINE 12.5 MG TAB PO PRN (16:16)
--- NOTE | 2020-12-21 16:49 | Electrophysiology Report ---
Date of Service December 21, 2020 Electrophysiology Procedure Electrophysiology Procedure Report Preoperative diagnosis: High-grade AV block Postoperative diagnosis: Same Procedure: Dual-chamber pacemaker implantation Surgeon: David Hammond MD Estimated blood loss: 20 cc Complications: None Disposition: Supplier Quality Engineer recovery Procedure details: After obtaining informed consent for the procedure, the patient was brought to the laboratory and prepped and draped in the standard sterile manner. Dye was injected the left arm IV site to opacify the left subclavian vein. The subclavian vein was identified and found to be free of obstruction. The left prepectoral region was anesthetized with 1% lidocaine local anesthetic and left axillary venipuncture was performed by percutaneous technique and a guidewire placed through the left subclavian vein into the superior vena cava. The area was further infiltrated with 1% lidocaine local anesthetic and a 5 cm incision was made parallel to the left clavicle and 2 cm below it and carried down to the anterior pectoralis fascia. A pacemaker pocket was formed by blunt dissection anterior to the pectoralis fascia and a bacitracin-soaked sponge (50,000 units in 50 cc normal saline solution) was placed in the pocket. An 8 [place] Medtronic lead introducer was placed over the guidewire into the left subclavian vein, the dilator and guidewire were removed and a bipolar active fixation steroid tipped atrial lead was advanced through the introducer into the superior vena cava. A guidewire was placed through the introducer and the introducer was stripped from the lead and guidewire. Using a curved stylette the atrial lead was positioned in the region of the atrial appendage and the screw extended fixing the lead in position. Pacing and sensing thresholds were evaluated in bipolar configuration and are recorded on the implant data sheet. Diaphragmatic pacing was evaluated full output and is noted on the implant data sheet. A 7 [place] Medtronic lead introducer was placed over the retained guidewire into the left subclavian vein, the dilator and guidewire were removed and a C315 sheath was advanced into the right ventricle over a guidewire. The guidewire and the dilator were removed and a bipolar active fixation Select Secure steroid tipped ventricular lead was advanced through the introducer into right ventricle. The ventricular lead was advanced through the sheath into a mid to distal septal location. The screw was extended fixing the lead in position. Penetration into the septum was confirmed with dye injection. Pacing and sensing thresholds were evaluated in bipolar configuration and are recorded on the implant data sheet. Diaphragmatic pacing was evaluated full output as noted on the implant data sheet. The sheath system was stripped from the ventricular lead and the 7 [place] sheath was also stripped from the lead. Once the leads were in position they were attached to the anterior pectoralis fascia using 2 sutures of 2-0 silk around each lead collar. The bacitracin- soaked sponge was removed from the pocket, hemostasis was obtained, the pacemaker was attached to the leads and placed in the pocket with the leads coiled beneath it. The incision was closed with a running double subcutaneous closure of 3-0 Vicryl absorbable suture, followed by running subcuticular skin closure of 4-0 Vicryl absorbable suture. Bacitracin ointment was placed on the incision and a dressing applied. [facility] Electrophysiology codes Indication for Procedure (1) Other second degree atrioventricular block: Pacing Procedure 1: Pacin Insert/Replace Pacer A & V Miscellaneous Procedures Procedure 1: EP Miscellaneous: 69203 Contrast injection for venography Procedure 2: EP Miscellaneous: 91565-00 Vengraphy, extremity PG Moderate Sedation Codes Moderate Sedation Codes Procedure 1: Sedation/Anesthesia: 28458 Mod Sedation by the same physician;Init15 Min Child Age 5 & Up Procedure 2: Sedation/Anesthesia: 72855 Mod Sedation by the same physician; Ea [id number] Minutes
--- NOTE | 2020-12-21 16:50 | Post Anesthesia Assessment ---
Date of Service December 21, 2020 Post Sedation Assessment Vital Signs Temp Pulse Resp BP Pulse Ox 12/21/20 16:45 75 18 163/67 H 93 12/21/20 16:30 73 18 159/101 H 95 12/21/20 16:13 75 18 184/84 H 94 12/21/20 14:00 36.6 C 46 L 16 230/70 H 97 Recovery Score Activity: Moves 4 extremities Respiration: Deep Breath/Cough Circulation: +/-20% PreAnes Value Consciousness: Fully Awake Oxygen Saturation: > 92% On Room Air Post Anesthesia Score: 10 Discharge Sedation Level of Care: Fast Track Phase II Post Sedation Plan On clinical assessment, the patient appears to have tolerated the sedation without complications. Patient is recovering as anticipated. Patient will continue to be monitored by nursing and may be discharged when sedation discharge criteria are met per below protocol. Upon Completions of procedure up to 15 minutes continue every 5 minute vital signs and the P.A.R. score; then discharge to a Phase I or Fast Track to Phase II per the following guidelines: * Discharge Patient to appropriate Phase II area if PAR is 8 or greater or return to pre- procedure baseline. The post - procedure orders will be as directed. * If PAR score is less than 8 or not return to pre-procedure baseline then patient will follow Phase I monitoring till PAR is reached for Phase II. The Phase I may be done in procedure room or may call to secure a Phase I area. * If naloxone or flumazenil are used for reversal, hold in Phase I for continued monitoring from when last reversal dose was given for a minimum of 60 minutes or longer pending the nurse and/or physician discretion of patient condition before discharge to Phase II. Please call the Sedation Physician to re-evaluate and complete post-note for discharge to Phase II area. Do NOT discharge from procedure sedation or Phase 1 until post- sedation evaluation note is complete by procedure /sedation MD Sedation Discharge Instructions to be given to the patient at discharge to home.
[2020-12-21] MEDS ORDERED: PHARMACY GLYCEMIC MGMT CONSULT PRN (17:09)
[2020-12-21] MEDS ORDERED: DEXTROSE 50% 50 ML SYRINGE IV PRN (17:15)
[2020-12-21] MEDS ORDERED: CARBOHYDRATES FOR HYPOGLYCEMIA PO PRN (17:15)
[2020-12-21] MEDS ORDERED: GLUCAGON FOR INJ 1 MG VIAL IM PRN (17:15)
[2020-12-21] MEDS ORDERED: GLUCOSE 10 TABS/TUBE PO PRN (17:15)
[2020-12-21] MEDS ORDERED: GLUCOSE 40% GEL 15 GM TUBE PO PRN (17:15)
[2020-12-21] MEDS ORDERED: INFLUENZA VACCINE HIGH DOSE 65+ 0.7 ML SYR IM ONE (17:17)
[2020-12-21] MEDS ORDERED: INFLUENZA ADMINISTRATION CHARGE ONE (17:17)
[2020-12-21] MEDS: INSULIN ASPART 100 UNITS/ML 3 ML PEN SC SCH ×2 (18:10→20:58)
[2020-12-21] MEDS ORDERED: LOSARTAN POTASSIUM 25 MG TAB PO SCH (21:00)
[2020-12-22] MEDS ORDERED: ASTELIN - ORDER AWAITING ACTION SCH
[2020-12-22] MEDS ORDERED: INSULIN ASPART 100 UNITS/ML 3 ML PEN SC SCH (02:00)
[2020-12-22] MEDS: INSULIN ASPART 100 UNITS/ML 3 ML PEN SC SCH (07:53)
[2020-12-22] MEDS ORDERED: NovoLIN-N (NPH) PER UNIT CHARGE SQ ONE ×2 (08:15→09:00)
[2020-12-22] MEDS ORDERED: ASPIRIN 81 MG ECTAB PO SCH (09:00)
[2020-12-22] MEDS ORDERED: LOSARTAN POTASSIUM 25 MG TAB PO SCH (09:00)
[2020-12-22] MEDS ORDERED: PRAVASTATIN SOD 20 MG TAB PO SCH (09:00)
[2020-12-22] MEDS ORDERED: predniSONE 1 MG TAB PO SCH (09:00)
[2020-12-22] MEDS ORDERED: CYANOCOBALAMIN 500 MCG TABLET (VITAMIN B-12) PO SCH (09:00)
[2020-12-22] MEDS ORDERED: POTASSIUM CITRATE 10 MEQ TAB PO SCH (09:00)
[2020-12-22] MEDS ORDERED: CHOLECALCIFEROL 1,000 UNITS 25 MCG TAB PO SCH (09:00)
[2020-12-22] MEDS ORDERED: LORATADINE 10 MG TAB PO SCH (09:00)
--- NOTE | 2020-12-22 09:05 | XRay Report ---
XR chest 2V PA/lateral CLINICAL HISTORY: Pacemaker insertion. COMPARISON STUDY: Chest radiograph November 05, 2020. FINDINGS: There is no pneumothorax following placement of a dual-lead left subclavian pacer. Lead tip s project over the right atrial appendage and the right ventricle. There is no evidence for pulmonary edema. Cardiomediastinal silhouette is stable. No consolidation is identified. IMPRESSION: No pneumothorax following placement of a dual-lead left subclavian pacemaker. ACT 112: Negative or not required by law. Electronically signed by: Fantasma Nance M.D. 12/22/2020 9:04 AM
--- NOTE | 2020-12-22 10:35 | Cardiology Progress Note ---
Date of Service December 22, 2020 Assessment & Plan (1) Status post placement of cardiac pacemaker: She is doing well post pacemaker implantation, the device is working well and she feels well. She is stable for discharge. Admission and Anticipated Discharge Date Admission Date: December 21, 2020 Subjective She is feeling well, minimal incisional discomfort, no cardiovascular symptoms. No dizziness, chest discomfort or shortness of breath. Physical Exam Physical Exam: The incision is clean and dry, there is some ecchymosis but no hematoma, swelling or tenderness. Lungs are clear Cardiac rhythm is regular with no rub Results & Data ([facility]) Vital Signs (Past 12 Hours) Vital Signs Temp Pulse Pulse Resp BP Pulse Ox 12/22/20 08:00 36.5 C 69 H 155/68 H 16 L 12/22/20 07:24 75 12/22/20 03:30 37.2 C 80 18 163/78 H 94 12/21/20 23:30 36.9 C 76 18 155/72 H 94 Laboratory Results Intake and Output 12/21/20 12/22/20 12/22/20 22:59 06:59 14:59 Intake Total 200 / 200 Balance 200 / 200 Intake: Oral 200 / 200 Other: # Unmeasured Voids 1 Weight 51.4 kg Weight Measurement Method Built in [facility] Diagnostic Findings Postop ECG: Atrial sensing and ventricular pacing throughout with appropriate function Telemetry: Normal dual-chamber pacemaker operation Pacemaker evaluation: Excellent pacing and sensing characteristics Chest x-ray: Good lead position, no pneumothorax PG Care Time/CCT Total # of Minutes Spent Total Time Spent with Patient: Total time spent is greater than 50% in coordination of care (as documented) at patient's floor/unit and/or counseling patient: Coding Level of Care Code 99111 Post Operative Follow-Up Diagnoses Status post placement of cardiac pacemaker Z95.0 CPT Codes Dual Lead Pacemaker System - 64950 ([id number])
--- NOTE | 2020-12-22 11:05 | Pharmacy Report ---
Pharmacy Glycemic Short Note 2 - Date of Service December 22, 2020 - Glycemic Short BSG Results (Last 24 hours): 12/21/20 12/21/20 12/21/20 14:25 17:58 20:35 POC Glucose 132 H 142 H 131 H 12/22/20 12/22/20 03:01 07:32 POC Glucose 138 H 166 H OUTPATIENT ANTIDIABETIC REGIMEN: * NPH 21 units SC daily * HbA1c = 7.7% (11/06/20) ASSESSMENT: * 89 yo F admitted s/p pacemaker placement yesterday afternoon. Pharmacy was consulted for assistance with inpatient glycemic management. * Post-op BSGs yesterday were 132-142-131 mg/dL, well controlled * She did not take NPH or Prednisone prior to admission * She only required 3 units of Novolog with dinner * Fasting BSG was 166 mg/dL today, acceptable * Gave 20 units of NPH since patient was getting prednisone this morning PLAN FOR INPATIENT GLYCEMIC CONTROL: * Basal insulin * NPH 20 units SQ x 1 * Bolus insulin * NovoLog per scale ACHS or Q6hrs while NPO * Goal Range: Low 110 mg/dL - High 150 mg/dL * Correction Factor: 35 mg/dL/unit * Nutritional / Prandial insulin per carb ratio of 1 unit per 12 grams CHO consumed PLAN FOR DISCHARGE: * HbA1c was 7.7% in November 2020 which is controlled for this patient. Continue with NPH 21 units SQ daily as long as prednisone 1 mg daily is continued.
--- NOTE | 2020-12-22 13:49 | Electrocardiogram Report ---
Test Reason : Blood Pressure : / mmHG Vent. Rate : 079 BPM Atrial Rate : 079 BPM P-R Int : 196 ms QRS Dur : 110 ms QT Int : 390 ms P-R-T Axes : 038 066 -21 degrees QTc Int : 447 ms Atrial-sensed ventricular-paced rhythm Abnormal ECG When compared with ECG of 05-NOV-2020 19:09, Electronic ventricular pacemaker has replaced Sinus rhythm Confirmed by Rohan Mancera ([id number]) on 12/22/2020 1:49:08 PM Referred By: David Hammond Confirmed By:Harlan Mancera
--- NOTE | 2021-01-05 08:46 | Discharge Summary ---
Date of Service January 05, 2021 Admission HPI Per Admitting Provider This is an 89-year-old woman with a history of diabetes mellitus, dyslipidemia, hypertension, GERD, osteoporosis but to my knowledge historically known cardiac history. She presented in November 2020 with two syncopal events, both occurring on November 05, 2020, one at 1130 and one at 1330. The first was not witnessed however the second was. Evidently she awoke quickly after the event without a postictal state and no seizure activity. The event itself apparently lasted less than 60 seconds. As an outpatient she was on losartan 12-1/2 mg daily but no negative chronotropic medications. Evaluation in the hospital included electrocardiography on November 05, 2020 which showed sinus rhythm at 81 bpm with a right bundle branch block pattern and a borderline VT interval at just about 200 ms. There were some minor lateral ST-T abnormalities. An echocardiogram done November 06, 2020 showed normal left ventricular size and function with borderline left ventricular hypertrophy, mild aortic insufficiency and moderate mitral regurgitation. The left atrium was mildly enlarged. Troponin measurements were drawn and were negative x3 and there were no other significant blood test abnormalities. A chest x-ray and a head CT were done on admission and were unremarkable. She did have a carotid Doppler done August 2020 which was read as showing less than 50% stenosis in the right and left internal carotid arteries. At the time my evaluation in November she recounted the episodes very clearly, the same as what is in the chart. She was hospitalized for several days and no arrhythmia was identified on telemetry monitoring and therefore she was discharged for outpatient event monitoring. Her monitor was done from November 13, 2020 through December 12, 2020 and although there is some question as to whether it was working very reliably she did try to wear it and there were no arrhythmias identified and she had no symptoms other than some occasional mild lightheadedness which has bothered her from time to time. 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 Additionally on electrocardiography December 17, 2020 she had 2- 1 AV conduction consistent with high-grade AV block. She is therefore admitted for pacemaker implantation with syncope in the setting of high-grade AV block. Admission Exam (Per Admitting) Constitutional Constitutional: Alert, cooperative and in no distress. Pulmonary: Clear to auscultation bilaterally. Cardiac: Regular rhythm with no murmur, gallop or rub. Abdomen: Soft, nontender with normal bowel sounds. Extremities: No edema. Skin: No rash, ecchymoses or petechiae. Discharge Data Procedures Performed Operation Date: 12/21/20 15:00 Actual Procedures p Pacer with A/V Leads (Dual) - David Hammond MD s Venogram, Unilateral - David Hammond MD Hospital Course (1) Status post placement of cardiac pacemaker: She had a dual-chamber pacemaker placed uneventfully on December 21, 2020. She is doing well post pacemaker implantation, the device is working well, leads are in good position and the site looks good and she feels well. She is stable for discharge. Coding Level of Care Code 77062 OBS Care - Discharge Diagnoses Status post placement of cardiac pacemaker Z95.0
== END 2020-12-22 12:29 | disposition home or self-care (01) ==
LOC: EP 13:54 → 2S 13:54